=== PATIENT | female | born 1960 | race Caucasian/White ===

== ENCOUNTER → 2016-09-03 | Outpatient (CLI) | payer BC ==
[2016-09-03 08:41] LABS: Appearance,Urine Clear (Clear); Bacteria,Urine Occasional /hpf; Bilirubin,Urine Negative (Negative); Glucose,Urine (UA) Negative (Negative); Ketones,Urine Negative (Negative); Leukocyte Esterase,Urine Moderate (Negative); Mucus,Urine Rare /hpf; Nitrite,Urine Positive (Negative); PH, Urine 5.5 (5.0-8.0); Particle Count 25193; Protein,Urine Negative (Negative); RBC,Urine <1 /hpf (0-5); Specific Gravity,Urine 1.007 (1.001-1.035); Squamous Epithelial Cell,Urine 3 /hpf (0-4); UA Billing (MACRO vs. MICRO) MICRO; Urobilinogen,Urine <2.0 mg/dL (<2.0); WBC,Urine 21 /hpf (0-5)
[2016-09-03 10:05] LABS: Anion Gap 11 mmol/L; Blood Urea Nitrogen 26 mg/dL (7-17); Calcium 9.7 mg/dL (8.4-10.2); Carbon Dioxide 24 mmol/L (22-30); Chloride 109 mmol/L (98-107); Glucose 98 mg/dL (74-99); Non-African American GFR(MDRD) 41 (>60 ml/min/1.73 sqM); Phosphorous 3.4 mg/dL (2.5-4.5); Potassium 4.4 mmol/L (3.5-5.1); Sodium 144 mmol/L (137-145); Uric Acid 5.3 mg/dL (3.7-7.4)
[2016-09-03 10:35] LABS: Hepatitis B Surface Ag Index 0.07
[2016-09-03 10:53] LABS: Hepatitis C Virus IgG Index 0.01
[2016-09-03 10:58] LABS: Hepatitis C Virus IgG Ab Negative (Negative)
[2016-09-03 11:06] LABS: Iron 73 ug/dL (37-170)
[2016-09-03 11:17] LABS: % Iron Saturation 29.2 % (20-50); Total Iron Binding Capacity 250 ug/dL (265-497)
[2016-09-03 17:11] LABS: ANA w/Reflex to Titer NEGATIVE (NEGATIVE)
[2016-09-04 05:52] LABS: Cardiolipin Ab IgG <9.0 GPL (<15); Cardiolipin Ab IgM 14.4 MPL (<12.5)
[2016-09-04 05:55] LABS: Complement Total (CH50) 150 CAE (54-144)
[2016-09-04 08:25] LABS: Free Kappa Lt Chain Qnt, Serum 2.44 mg/dL (0.33 - 1.94); Kappa/Lambda Light Chain Ratio 1.15 (0.26 - 1.65)
[2016-09-04 14:13] LABS: Scleroderma 70 Antibody 2 UNITS (<20)
[2016-09-04 14:32] LABS: C-ANCA <1:20 Titer (<1:20); P-ANCA <1:20 Titer (<1:20)
[2016-09-05 06:10] LABS: Aldolase 2.8 U/L (1.2-7.6)
== END | disposition home or self-care (01) ==
LOC: LABWHC1 07:37
PROVIDERS: ATTEND Internal Medicine Rheumatology
DX: N18.3 Chronic kidney disease, stage 3 (moderate) (principal); D64.9 Anemia, unspecified; E79.0 Hyperuricemia without signs of inflammatory arthritis and tophaceous disease; E21.3 Hyperparathyroidism, unspecified; R35.0 Frequency of micturition; R76.8 Other specified abnormal immunological findings in serum
CPT/HCPCS: 36415; 80048; 81001; 82085; 82306; 82728; 83516; 83540; 83550; 83883; 83970; 84100; 84165; 84550; 85613; 85730; 86038; 86147; 86160; 86162; 86225; 86235; 86255; 86334; 86803; 87340

== ENCOUNTER → 2016-09-17 | Outpatient (CLI) | payer BC ==
--- NOTE | 2016-09-17 07:33 | US ---
EXAMINATION TYPE: US kidneys/renal and bladder DATE OF EXAM: 09/17/2016 6:54 AM COMPARISON: NONE CLINICAL HISTORY: N18.3 Chronic kidney disease, stage 3 (moderate). creatinine levels stable EXAM MEASUREMENTS: Right Kidney: 8.3 x 4.4 x 3.8 cm Left Kidney: 8.1 x 3.1 x 3.2 cm cm Post Void Residual Volume: 23.4 mL Findings: Right Kidney: small, no hydro seen Left Kidney: small, cyst lower pole 0.5 x 0.6 x 0.4 cm, no hydro seen Bladder: wnl Bilateral Jets seen: yes Normal Post Void Residual: yes There is no evidence for hydronephrosis at this point in time. No nephrolithiasis is seen. No jose raul s are identified. The urinary bladder is anechoic. Bilateral ureteral jets are seen. IMPRESSION: Atrophic changes with medical renal disease. Small cyst lower pole left kidney.
== END | disposition home or self-care (01) ==
LOC: RADUSWWP 06:53
PROVIDERS: ATTEND Internal Medicine Nephrology
DX: N28.1 Cyst of kidney, acquired (principal); N26.1 Atrophy of kidney (terminal); N18.3 Chronic kidney disease, stage 3 (moderate)
CPT/HCPCS: 76770

== ENCOUNTER → 2016-09-18 | Outpatient (CLI) | payer BC ==
--- NOTE | 2016-09-18 08:16 | MR ---
EXAMINATION TYPE: MR knee LT wo con DATE OF EXAM: 09/18/2016 7:32 AM COMPARISON: NONE HISTORY: Left knee pain. TECHNIQUE: Multiplanar, multisequence imaging of the knee is performed without IV contrast. FINDINGS: MEDIAL MENISCUS: Anterior horn of the medial meniscus appears intact. Posterior horn medial meniscus has some subtle increased signal within its substance posteriorly can be compatible some degenerative change. Internal derangement could be considered. LATERAL MENISCUS: Anterior horn of the lateral meniscus is essentially absent with very little residu al remaining. Posterior horn lateral meniscus appears intact. CRUCIATE LIGAMENTS: The anterior and posterior cruciate ligaments are intact and unremarkable. COLLATERAL LIGAMENTS: The medial and lateral collateral ligaments appear intact. There is some mild i ncreased signal adjacent to the medial collateral ligament which could suggest a mild strain. EXTENSOR MECHANISM: Visualized quadriceps and patellar tendons are intact. EFFUSION: There is a moderate joint effusion present. Subcutaneous edema is also present anteriorly. No popliteal cyst is evident. POPLITEAL CYST: No popliteal/pean cyst. TRICOMPARTMENT SPACES: There is diffuse thinning of the articular cartilage. There is narrowing of th e medial compartment joint space. More moderate narrowing of the lateral compartment joint space is p resent. There is thinning of the posterior patellar articular cartilage with some narrowing of the pa tellofemoral joint space. BONE MARROW SIGNAL: There is slight increase signal within the lateral tibial plateau compatible with contusion. Some focal increased uptake within the medial femoral condyle could suggest prior underly ing medullary infarct or older contusion. This extends towards the articular surface. Anteriorly some close involvement with the articular surface may be present. A small component of osteochondritis co uld be considered at this location. This could be posttraumatic in nature. OTHER: No additional significant abnormality is appreciated. IMPRESSION: 1. Strain of the medial collateral ligament. 2. Moderate joint effusion. 3. Osteoarthritic degenerative change. 4. Contusion of the lateral tibial plateau. 5. 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 This extends towards the articular s urface a small component of osteochondritis dissecans more anteriorly could be considered. Posttrauma tic changes of this articular surface could be considered within the differential. 6. Loss of the anterior horn lateral meniscus. 7. Mild internal derangement or degenerative change of the posterior horn medial meniscus.
== END | disposition home or self-care (01) ==
LOC: RADMRIMAIN 06:42
PROVIDERS: ATTEND Orthopaedic Surgery
DX: S86.812A Strain of other muscle(s) and tendon(s) at lower leg level, left leg, initial encounter (principal); M17.12 Unilateral primary osteoarthritis, left knee

== ENCOUNTER → 2016-09-25 | Outpatient (CLI) | payer BC ==
[2016-09-25 08:18] LABS: EKG EKG PERFORMED
[2016-09-25 09:00] LABS: Basophils % (A) 0 %; CH 30.2; CHCM 32.4; Eosinophils # (A) 0.1 k/uL (0-0.7); Eosinophils % (A) 3 %; HCT 41.7 % (34.0-46.0); HDW 2.46; HGB 13.3 gm/dL (11.4-16.0); Luc # (Auto) 0.13; Luc % (Auto) 3; Lymphocytes # (A) 1.4 k/uL (1.0-4.8); Lymphocytes % (A) 29 %; MCV 93.7 fL (80.0-100.0); Mean Platelet Volume 6.5; Monocytes # (A) 0.3 k/uL (0-1.0); Monocytes % (A) 7 %; Neutrophils % (A) 59 %; RBC 4.45 m/uL (3.80-5.40); RDW 13.2 % (11.5-15.5); WBC (Perox) 5.39
[2016-09-25 09:10] LABS: Anion Gap 12 mmol/L; Carbon Dioxide 20 mmol/L (22-30); Chloride 113 mmol/L (98-107); Sodium 145 mmol/L (137-145)
[2016-09-25 09:19] LABS: Potassium 4.7 mmol/L (3.5-5.1)
== END | disposition home or self-care (01) ==
LOC: LABPAT 08:05
PROVIDERS: ATTEND Orthopaedic Surgery
DX: Z01.812 Encounter for preprocedural laboratory examination (principal); Z01.810 Encounter for preprocedural cardiovascular examination
CPT/HCPCS: 80051; 85025; 93005

== ENCOUNTER 2016-09-28 10:58 | Day surgery (SDC) | payer BC ==
[2016-09-25 15:23] VITALS: BMI 37.8
--- NOTE | 2016-09-27 13:59 | HP ---
DATE OF ADMISSION: 09/28/2016 Yeny Lott is a 55-year-old patient seen with progressive left knee pain. After having treatment options discussed, she elected to proceed with left knee arthroscopy. Consent was obtained. Her past medical history is hypertension, fibromyalgia, gout. PAST SURGICAL HISTORY: Appendectomy, hip replacement, cardiac catheterization with stent insertion. DAILY MEDICATIONS: 1. Aleve. 2. Allopurinol. 3. Lopressor. 4. Lyrica. 5. Plaquenil. 6. Prilosec. 7. Simvastatin. ALLERGIES: None reported. SOCIAL HISTORY: Patient denies current tobacco use. Physical evaluation of the left knee: Range of motion is -2/3 to 110 degrees. There is a mild effusion present. There is tenderness along the lateral joint line with a positive lateral Christina's. Ligaments are stable. Hip rotation is without pain. Distal neurovascular exam is intact. Left knee radiographs revealed moderate osteoarthritis. A left knee MRI revealed lateral meniscal tear, osteoarthritis, and joint effusion. IMPRESSION: Internal derangement of the left knee with lateral meniscal tear. PLAN: Left knee arthroscopy with partial meniscectomy and debridement.
[~2016-09-28 10:58] MED LIST: DEXAMETHASONE SOD PHOSPHATE 10 MG/ML 1 ML VIAL IV ONE; LACTATED RINGERS 1,000 ML IV SCH; LIDOCAINE 1% 20 ML VIAL (10MG/ML) FOR IV START INTRADERMA PRN; MIDAZOLAM 2 MG/2 ML VIAL IV PRN; ONDANSETRON 4 MG/2 ML VIAL IVP ONE; SCOPOLAMINE 1.5MG/72HR PATCH TRANSDERM ONE; ceFAZolin 2 GM in SODIUM CHLORIDE 0.9% 100 ML IVPB ONE; fentaNYL (PF) 50 MCG/ML 20 ML VIAL IVP PRN
[2016-09-28] MEDS ORDERED: SUCCINYLCHOLINE CHLORIDE 100 MG/5 ML SYR IV ONE (14:25)
[2016-09-28] MEDS ORDERED: LIDOCAINE 1% INJ 10MG/ML (20 ML MDV) ONE (14:25)
[2016-09-28] MEDS ORDERED: PROPOFOL 10 MG/ML 20 ML VIAL IV ONE (14:25)
[2016-09-28] MEDS ORDERED: MIDAZOLAM 2 MG/2 ML VIAL ONE (14:25)
[2016-09-28] MEDS ORDERED: fentaNYL (PF) 50 MCG/ML 2 ML AMP ONE (14:25)
[2016-09-28] MEDS ORDERED: BUPIVACAIN-EPI 0.25%-1:200,000 30 ML VIAL INTRAARTIC ONE ×2 (14:45→15:03)
--- NOTE | 2016-09-28 15:23 | P.OP ---
Date of Procedure: 09/28/16 Preoperative Diagnosis: Internal derangement left knee Postoperative Diagnosis: 1. Tear lateral meniscus left knee 2. Grade 3 chondromalacia medial femoral condyle left knee 3. Grade 3 chondromalacia lateral femoral condyle left knee 4. Grade 2/3 chondromalacia patella left knee 5. Reactive synovitis medial, lateral and suprapatellar compartments left knee Procedure(s) Performed: 1. Arthroscopic partial lateral meniscectomy left knee 2. Arthroscopic chondroplasty medial femoral condyle left knee 3. Arthroscopic chondroplasty lateral femoral condyle left knee 4. Arthroscopic chondroplasty patella left knee 5. Arthroscopic partial synovectomy medial, lateral and suprapatellar compartments left knee Anesthesia: GETA Surgeon: Archie Barry Estimated Blood Loss (ml): 10 Pathology: none sent Condition: stable Disposition: PACU Indications for Procedure: 56-year-old patient seen with progressive left knee pain. After having treatment options discussed, she elected to proceed with left knee arthroscopy. Operative Findings: See description of procedure Description of Procedure: Patient was taken to the operative suite. Patient underwent a general anesthetic by the department of anesthesia. Patient was given preoperative antibiotics. The left lower extremity was placed in a well-padded arthroscopic leg perry. The left leg was prepped and draped in the normal sterile orthopedic fashion. A lateral parapatellar and suprapatellar incision was made. Trochars were inserted. Arthroscopy was initiated. Suprapatellar pouch revealed diffuse thick reactive synovitis. The patellofemoral joint appeared to articulate congruently. There was grade 2/3 chondromalacia of the patella. The scope was guided into the medial gutter. No loose bodies or plica were identified. The scope was then guided into the medial compartment. A medial parapatellar incision was made. Trocar inserted followed by probe. The medial meniscus had some mild superficial fraying but no tears. There were grade 3 chondromalacia changes of the medial femoral condyle with some large osteochondral tears present. There was reactive synovitis anteriorly. I performed a chondroplasty of the medial femoral condyle down to stable tissue followed by partial synovectomy. The probe was reintroduced and noted good stability about the residual osteochondral surface. Scope and probe were then guided into the intercondylar notch. Cruciates were identified, probed and found to be stable. The scope and probe were then guided into lateral compartment. There was a complex tear involving the anterior horn and midbody of the lateral meniscus. There were grade 3 chondral moist changes of the lateral femoral condyle with some osteochondral tears. There was reactive synovitis anteriorly. A partial lateral meniscectomy performed on a stable tissue. I performed a chondroplasty of the lateral femoral condyle and partial synovectomy. The residual osteochondral surface and meniscus were probed and found to be stable. The scope was in guided back into the suprapatellar compartment. A motorized shaver was introduced into the suprapatellar compartment. I debrided out some piecemeal fragments of meniscus I encountered. I performed a chondroplasty of the patella. I performed a partial synovectomy. Shaver was removed. I took one more look on the entire knee, no residual debris. Instruments were now removed from the joint. The joint was infiltrated with .25% Marcaine. Steri-Strips were applied to the portal sites. Sterile dressings were applied. The patient was placed into a FINN hose. No tourniquet was utilized. The patient was awakened, transferred to a bed and taken to recovery stable satisfactory condition.
[2016-09-28] MEDS: HYDROmorphone 1 MG/ML 1 ML SYRINGE IVP PRN ×2 (15:33→15:43)
[2016-09-28 15:42] VITALS: RESP 16
[2016-09-28 15:52] VITALS: TEMP 97.9
[2016-09-28] MEDS ORDERED: LACTATED RINGERS 1,000 ML IV ONE (16:18)
[2016-09-28] MEDS ORDERED: HYDROcodone/APAP 7.5-325MG 1 EACH TAB PO ONE (16:47)
[2016-09-28] MEDS ORDERED: ONDANSETRON 4 MG/2 ML VIAL IVP ONE (17:36)
[2016-09-28 17:39] VITALS: BP 142/78
[2016-09-28 17:46] VITALS: PULSE 70
== END 2016-09-28 18:03 | disposition home or self-care (01) ==
LOC: OR 10:58
PROVIDERS: ATTEND Orthopaedic Surgery
DX: S83.282A Other tear of lateral meniscus, current injury, left knee, initial encounter (principal); M94.262 Chondromalacia, left knee; M22.42 Chondromalacia patellae, left knee; M65.862 Other synovitis and tenosynovitis, left lower leg; M23.92 Unspecified internal derangement of left knee; M25.462 Effusion, left knee; M17.12 Unilateral primary osteoarthritis, left knee; I10 Essential (primary) hypertension; M79.7 Fibromyalgia; M10.9 Gout, unspecified; E78.5 Hyperlipidemia, unspecified; M32.9 Systemic lupus erythematosus, unspecified; K21.9 Gastro-esophageal reflux disease without esophagitis; Z95.5 Presence of coronary angioplasty implant and graft; I25.2 Old myocardial infarction; Z79.1 Long term (current) use of non-steroidal anti-inflammatories (NSAID); Z79.82 Long term (current) use of aspirin; Z79.899 Other long term (current) drug therapy; Z88.8 Allergy status to other drugs, medicaments and biological substances; X58.XXXA Exposure to other specified factors, initial encounter
CPT/HCPCS: 29881; J2250; J1100; J0690; J2405; J2001; J3010; J1170; J0330; J2704

== ENCOUNTER → 2016-12-29 | Outpatient (CLI) | payer OTHER ==
[2016-12-29 13:37] LABS: Basophils % (A) 0 %; CH 30.8; CHCM 32.7; Eosinophils # (A) 0.2 k/uL (0-0.7); Eosinophils % (A) 3 %; HCT 39.3 % (34.0-46.0); HDW 2.46; HGB 12.7 gm/dL (11.4-16.0); Luc # (Auto) 0.19; Luc % (Auto) 3; Lymphocytes # (A) 2.5 k/uL (1.0-4.8); Lymphocytes % (A) 38 %; MCH 30.5 pg (25.0-35.0); MCHC 32.2 g/dL (31.0-37.0); MCV 94.7 fL (80.0-100.0); Mean Platelet Volume 6.7; Monocytes # (A) 0.4 k/uL (0-1.0); Monocytes % (A) 7 %; Neutrophils # (A) 3.2 k/uL (1.3-7.7); Neutrophils % (A) 50 %; RBC 4.15 m/uL (3.80-5.40); WBC 6.5 k/uL (3.8-10.6)
[2016-12-29 13:48] LABS: Calcium 9.4 mg/dL (8.4-10.2); Magnesium 2.1 mg/dL (1.6-2.3); Potassium 4.6 mmol/L (3.5-5.1)
[2016-12-29 13:56] LABS: % Iron Saturation 28.6 % (20-50)
== END | disposition home or self-care (01) ==
LOC: LABWHC1 12:51
PROVIDERS: ATTEND Nurse Practitioner Family
DX: N18.3 Chronic kidney disease, stage 3 (moderate) (principal); E79.0 Hyperuricemia without signs of inflammatory arthritis and tophaceous disease; E21.3 Hyperparathyroidism, unspecified; D64.9 Anemia, unspecified; E55.9 Vitamin D deficiency, unspecified; M10.9 Gout, unspecified; E83.39 Other disorders of phosphorus metabolism
CPT/HCPCS: 36415; 80048; 82306; 82728; 83540; 83550; 83735; 83970; 84100; 84550; 85025

== ENCOUNTER → 2017-09-13 | Outpatient (CLI) | payer BC ==
[2017-09-13 07:54] LABS: ALT 41 U/L (9-52); AST 27 U/L (14-36); Cholesterol 154 mg/dL (<200); HDL Cholesterol 61 mg/dL (40-60); LDL Cholesterol,Calculated 76 mg/dL (0-99); Triglycerides 83 mg/dL (<150)
== END | disposition home or self-care (01) ==
LOC: LABWHC1 07:02
PROVIDERS: ATTEND Internal Medicine Cardiovascular Disease
DX: E78.2 Mixed hyperlipidemia (principal)
CPT/HCPCS: 36415; 80061; 84450; 84460

== ENCOUNTER → 2018-03-07 | Outpatient (CLI) | payer BC ==
[2018-03-07 07:44] LABS: Basophils % (A) 0 %; Eosinophils # (A) 0.2 k/uL (0-0.7); Eosinophils % (A) 3 %; HCT 39.3 % (34.0-46.0); Lymphocytes % (A) 48 %; MCH 30.1 pg (25.0-35.0); MCHC 33.1 g/dL (31.0-37.0); Monocytes # (A) 0.4 k/uL (0-1.0); Monocytes % (A) 7 %; Neutrophils # (A) 2.5 k/uL (1.3-7.7); Neutrophils % (A) 40 %; Platelet Count 224 k/uL (150-450); RBC 4.32 m/uL (3.80-5.40); RDW 13.2 % (11.5-15.5); WBC 6.3 k/uL (3.8-10.6)
[2018-03-07 07:48] LABS: Appearance,Urine Clear (Clear); Bilirubin,Urine Negative (Negative); Blood,Urine Negative (Negative); Color,Urine Light Yellow; Glucose,Urine (UA) Negative (Negative); Ketones,Urine Negative (Negative); Leukocyte Esterase,Urine Negative (Negative); Nitrite,Urine Negative (Negative); PH, Urine 5.5 (5.0-8.0); Protein,Urine Negative (Negative); Specific Gravity,Urine 1.008 (1.001-1.035); Urobilinogen,Urine <2.0 mg/dL (<2.0)
[2018-03-07 08:14] LABS: Calcium 9.3 mg/dL (8.4-10.2); Magnesium 2.2 mg/dL (1.6-2.3); Phosphorus 3.5 mg/dL (2.5-4.5); Potassium 4.7 mmol/L (3.5-5.1); Uric Acid 5.2 mg/dL (3.7-7.4)
[2018-03-07 11:12] LABS: Iron Saturation 20.93 (12.00-45.00)
[2018-03-07 11:23] LABS: Vitamin D 25 Hydroxy 40.2 ng/mL (30.0-100.0)
[2018-03-07 11:30] LABS: Parathyroid Hormone Intact 107.1 pg/mL (14.0-72.0)
== END | disposition home or self-care (01) ==
LOC: LABWHC1 07:09
PROVIDERS: ATTEND Nurse Practitioner Family
DX: E21.3 Hyperparathyroidism, unspecified (principal); E79.0 Hyperuricemia without signs of inflammatory arthritis and tophaceous disease; N18.3 Chronic kidney disease, stage 3 (moderate); D63.1 Anemia in chronic kidney disease; N39.0 Urinary tract infection, site not specified
CPT/HCPCS: 36415; 80048; 81003; 82306; 82728; 83540; 83550; 83735; 83970; 84100; 84550; 85025

== ENCOUNTER → 2018-04-18 | Outpatient (CLI) | payer BC ==
[2018-04-18 12:28] LABS: HCT 43.6 % (34.0-46.0); HGB 13.7 gm/dL (11.4-16.0); MCH 29.4 pg (25.0-35.0); MCHC 31.3 g/dL (31.0-37.0); MCV 93.7 fL (80.0-100.0); Mean Platelet Volume 6.6; Platelet Count 221 k/uL (150-450); RBC 4.65 m/uL (3.80-5.40); RDW 13.6 % (11.5-15.5); WBC 6.7 k/uL (3.8-10.6)
== END | disposition home or self-care (01) ==
LOC: LABPAT 11:44
PROVIDERS: ATTEND Internal Medicine Clinical Cardiac Electrophysiology
DX: Z01.812 Encounter for preprocedural laboratory examination (principal); I21.09 ST elevation (STEMI) myocardial infarction involving other coronary artery of anterior wall; I44.30 Unspecified atrioventricular block; Z95.5 Presence of coronary angioplasty implant and graft
CPT/HCPCS: 36415; 80051; 82565; 82947; 84520; 85027

== ENCOUNTER 2018-04-21 10:08 | Day surgery (SDC) | payer BC ==
[2018-04-18 14:45] VITALS: BMI 38.6
[~2018-04-21 10:08] MED LIST changes: -DEXAMETHASONE SOD PHOSPHATE 10 MG/ML 1 ML VIAL IV ONE; -LACTATED RINGERS 1,000 ML IV SCH; -LIDOCAINE 1% 20 ML VIAL (10MG/ML) FOR IV START INTRADERMA PRN; -MIDAZOLAM 2 MG/2 ML VIAL IV PRN; -ONDANSETRON 4 MG/2 ML VIAL IVP ONE; -SCOPOLAMINE 1.5MG/72HR PATCH TRANSDERM ONE; +ceFAZolin 1,000 MG in SODIUM CHLORIDE 0.9% IRRIGATIO 250 ML IRRIGATION ONE; -ceFAZolin 2 GM in SODIUM CHLORIDE 0.9% 100 ML IVPB ONE; -fentaNYL (PF) 50 MCG/ML 20 ML VIAL IVP PRN
[2018-04-21] MEDS: SODIUM CHLORIDE 0.9% 1,000 ML IV SCH (10:37)
[2018-04-21] MEDS ORDERED: ceFAZolin IN SWFI 2 GM/20 ML SYRINGE IVP STA (11:17)
[2018-04-21] MEDS ORDERED: ceFAZolin 1,000 MG in DEXTROSE/WATER 1 50ML.BAG IVPB STA (11:21)
[2018-04-21] MEDS ORDERED: HYDROmorphone (PF) 1 MG/ML ONE (11:31)
[2018-04-21] MEDS ORDERED: PROPOFOL 10 MG/ML 20 ML VIAL IV ONE (11:31)
[2018-04-21] MEDS ORDERED: MIDAZOLAM 2 MG/2 ML VIAL ONE (11:31)
[2018-04-21] MEDS ORDERED: diphenhydrAMINE 50 MG/ML 1 ML VIAL ONE (11:31)
[2018-04-21] MEDS ORDERED: fentaNYL (PF) 50 MCG/ML 2 ML AMP ONE (11:31)
[2018-04-21] MEDS ORDERED: LIDOCAINE 1% INJ 10MG/ML (20 ML MDV) ONE ×2 (11:31→12:32)
[2018-04-21] MEDS ORDERED: IOPAMIDOL-250 50ML BTL IV ONE (12:01)
[2018-04-21] MEDS: ceFAZolin IN SWFI 2 GM/20 ML SYRINGE IVP ONE ×2 (12:28→12:29)
[2018-04-21] MEDS ORDERED: LIDOCAINE 1% INJ 10MG/ML (20 ML MDV) SQ ONE ×2 (12:33→14:51)
[2018-04-21] MEDS ORDERED: ACETAMINOPHEN TAB 325 MG TAB PO PRN (15:20)
[2018-04-21] MEDS ORDERED: ACETAMINOPHEN IV (For NPO) 1,000 MG in EMPTY BAG 1 BAG IVPB ONE (15:20)
--- NOTE | 2018-04-21 16:49 | CE ---
CARDIAC ELECTROPHYSIOLOGY REPORT This is a 57-year-old female who has very frequent dizzy spells and had syncopal spells and has documented intermittent complete heart block with severe bradycardia. No incriminating drugs. The patient was brought for dual-chamber pacemaker with the LV lead placement since it is anticipated that she will pace the right ventricle greater than 40% at times in the future. Patient was brought to the EP lab in a fasting state. Written informed consent was obtained prior to the procedure. The left shoulder area was prepped and draped as per protocol. 1% lidocaine was used for local anesthesia. A 4 cm incision was made parallel to the deltopectoral groove, about 1.5 cm medial to it. The incision was carried down to the level of the pectoralis muscle. A subfascial pocket was made. Hemostasis was assured. The left axillary vein was accessed at 3 separate points under fluoroscopy and via appropriately-sized introducer sheaths and 3 leads were positioned the right heart. The atrial lead was a 52 cm passive pacemaker lead, [employer] Isoflex [employer]um 1944, serial number [id number]. The RV lead was a [employer] model #7122, 60 cm in length and serial number [id number]. The LV lead was a [employer] Quartet 1458Q, 75 cm in length and serial number [id number]. The P waves were 3.1 mV, pacing threshold 0.75 V at 0.5 milliseconds, pacing impedance of 540 ohms. 10 V test negative. The R-waves were 3.7 mV. Pacing threshold 1 V at 0.5 milliseconds, and the pacing impedance of 660 ohms. LV pacing threshold 0.75 V at 0.5 milliseconds. Pacing impedance 450 ohms. The leads were secured to the underlying pectoralis fascia using nonabsorbable sutures. Pocket was irrigated with antibiotic solution. Leads were connected to the generator ([employer] biventricular pacemaker Quadra SYRIAC [id number], serial #[id number]. The device was then programmed DDD at 60-120 ppm with short AV delay with LV RV offset of 20 milliseconds. The patient tolerated the procedure well without any acute complications. RESULT: Successful dual chamber pacemaker implantation for management of intermittent complete heart block and anticipated RV pacing percentage of greater than 40% in the future. The patient has a history of a septal infarct with a healed VSD on echo in the mid septum. The RV ICD lead was positioned in the RV apex. His ejection fraction is mildly reduced. PIPPA / CARLOSN: [id number] /
[2018-04-21] MEDS: ceFAZolin IN SWFI 2 GM/20 ML SYRINGE IVP SCH ×2 (18:25→23:34)
[2018-04-21] MEDS: LACTATED RINGERS 1,000 ML IV SCH (18:41)
[2018-04-21] MEDS: PREGABALIN 75 MG CAP PO SCH (20:19)
[2018-04-21] MEDS ORDERED: ATORVASTATIN 40 MG TAB PO SCH (21:00)
[2018-04-21] MEDS: HYDROcodone/APAP 5-325MG 1 EACH TAB PO PRN (23:40)
[2018-04-22] MEDS ORDERED: ONDANSETRON 4 MG/2 ML VIAL IVP STA (00:04)
[2018-04-22] MEDS: SODIUM CHLORIDE 0.9% 1,000 ML IV SCH (01:49)
[2018-04-22] MEDS: ceFAZolin IN SWFI 2 GM/20 ML SYRINGE IVP SCH ×2 (06:12→11:57)
[2018-04-22] MEDS: HYDROcodone/APAP 5-325MG 1 EACH TAB PO PRN ×2 (06:12→10:04)
[2018-04-22] MEDS: LACTATED RINGERS 1,000 ML IV SCH (06:23)
[2018-04-22] MEDS ORDERED: ONDANSETRON 4 MG/2 ML VIAL IVP PRN (07:46)
--- NOTE | 2018-04-22 08:00 | P.DS ---
Providers Attending physician: Jaswinder Berrios Primary care physician: [facility] Course: Patient status post biventricular pacemaker for complete heart block, symptomatic without any reversible causes Patient is resting comfortably in bed no respiratory distress the a 6 site is healing well. 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 RV lead is in the apex Plan Discharge home after completion of IV antibiotics chest x-ray and device interrogation Follow-up the device clinic in 5 days and follow with Dr. Cagle as previously scheduled Plan - Discharge Summary Discharge Rx Participant: Yes New Discharge Prescriptions: Continue RX: Allopurinol [Zyloprim] 100 mg PO DAILY RX: Simvastatin [Zocor] 80 mg PO HS RX: Pregabalin [Lyrica] 75 mg PO BID RX: Tolterodine Tartrate [Detrol LA] 4 mg PO DAILY RX: Multivitamin [Men's Multi-Vitamin] 1 tab PO DAILY RX: Omeprazole [PriLOSEC] 20 mg PO AC-BID PRN PRN Reason: Heartburn RX: Aspirin 325 mg PO DAILY Norvasc(Dose Unknown) 1 tab PO DAILY RX: Calcium Citrate/Vitamin D3 [Calcitrate + Vit D Caplet] 1 each PO SCHUSTER Vitamin D(Dose Unknown) 1 tab PO DAILY Eye Vitamin 1 tab PO DAILY Discharge Medication List RX: Allopurinol [Zyloprim] 100 mg PO DAILY 01/13/14 [History] RX: Multivitamin [Men's Multi-Vitamin] 1 tab PO DAILY 01/13/14 [History] RX: Pregabalin [Lyrica] 75 mg PO BID 01/13/14 [History] RX: Simvastatin [Zocor] 80 mg PO HS 01/13/14 [History] RX: Tolterodine Tartrate [Detrol LA] 4 mg PO DAILY 01/13/14 [History] RX: Omeprazole [PriLOSEC] 20 mg PO AC-BID PRN 01/14/14 [History] RX: Aspirin 325 mg PO DAILY 09/25/16 [History] Eye Vitamin 1 tab PO DAILY 04/18/18 [History] Norvasc(Dose Unknown) 1 tab PO DAILY 04/18/18 [History] RX: Calcium Citrate/Vitamin D3 [Calcitrate + Vit D Caplet] 1 each PO SCHUSTER [History] Vitamin D(Dose Unknown) 1 tab PO DAILY 04/18/18 [History] Follow up Appointment(s)/Referral(s): Zachariah Cagle MD [STAFF PHYSICIAN] - 1 Week (Device clinic follow-up in 5 days Follow-up with Dr. Waldron as previously scheduled) Activity/Diet/Wound Care/Special Instructions: PATIENT EDUCATION MATERIAL Instructions following a heart rhythm device implant. 1. Keep dressing DRY for 5 DAYS. You may cover the area with Saran or Cling Wrap, prior to a shower. 2. The dressing will be removed in the Device Clinic at [facility]. Absorbable sutures were used to close the wound. 3. Avoid raising the left arm above the shoulder level. 4 week restriction 4. Avoid arm movements, like backscratching, rubbing the head, or pulling on a cord. 4 weeks restriction 5. Gentle range of motion movements of the shoulder, closest to the incision should be performed to avoid a frozen shoulder. (Pendulum exercises of the shoulder) 6. The opposite arm may be used freely. 7. Avoid driving for 7 days. 8. Avoid activities such as golfing, swimming, weed whacking, lifting more than 10 pounds weight, bowling, gymnastics and weight training/lifting. (6 weeks restriction) 9. Activities such as wood chopping with an axe, pull-ups in the gymnasium, power lifting, arc-welding, being close to home induction cooktops will always be a problem. 10. Arm sling is only a reminder not to raise the arm above the head. You do not need to keep the arm completely immobilized. Your free to move the arm and use it and for normal activities. In case of any problems, please call [facility], Randy Reyes, @ [phone], Attention: Device Clinic Device clinic follow-up in 5 days Follow-up with primary chair pad maker in 2-3 months Patient goes back on her usual medications including amlodipine at the usual dose without any changes Follow-up with Dr. Waldron is producing scheduled 400 the device clinic in 5 days Discharge Disposition: HOME SELF-CARE
[2018-04-22 08:33] VITALS: RESP 18
[2018-04-22] MEDS: PREGABALIN 75 MG CAP PO SCH (08:58)
[2018-04-22] MEDS ORDERED: ALLOPURINOL 100 MG TAB PO SCH (09:00)
[2018-04-22] MEDS ORDERED: OXYBUTYNIN 10 MG TAB.ER.24 PO SCH (09:00)
[2018-04-22] MEDS ORDERED: ASPIRIN 325 MG TAB PO SCH (09:00)
--- NOTE | 2018-04-22 11:14 | XR ---
EXAMINATION TYPE: XR chest 2V DATE OF EXAM: 04/22/2018 COMPARISON: NONE TECHNIQUE: PA and lateral views submitted. HISTORY: Pacemaker lead check FINDINGS: The lungs are clear and there is no pneumothorax, pleural effusion, or focal pneumonia. Multi lead pacemaker noted. Appears to be a lead overlying the right atrium, right ventricle, and left ventricle . Hypertrophic and degenerative change of the spine noted. No overt failure. IMPRESSION: 1. Pacemaker as discussed above.
[2018-04-22 12:13] VITALS: BP 121/68; PULSE 60; TEMP 97.9
== END 2018-04-22 13:17 | disposition home or self-care (01) ==
LOC: CATHEP 10:08 → 3OBS 15:01 → CATHEP 04-22 13:17
PROVIDERS: ATTEND Internal Medicine Clinical Cardiac Electrophysiology
DX: I44.2 Atrioventricular block, complete (principal); R00.1 Bradycardia, unspecified; I25.10 Atherosclerotic heart disease of native coronary artery without angina pectoris; I25.2 Old myocardial infarction; M32.9 Systemic lupus erythematosus, unspecified; I13.0 Hypertensive heart and chronic kidney disease with heart failure and stage 1 through stage 4 chronic kidney disease, or unspecified chronic kidney disease; I50.9 Heart failure, unspecified; N18.9 Chronic kidney disease, unspecified; E78.5 Hyperlipidemia, unspecified; I77.9 Disorder of arteries and arterioles, unspecified; M25.511 Pain in right shoulder; G89.29 Other chronic pain; K21.9 Gastro-esophageal reflux disease without esophagitis; Z95.5 Presence of coronary angioplasty implant and graft; F17.210 Nicotine dependence, cigarettes, uncomplicated; Z79.82 Long term (current) use of aspirin; Z79.899 Other long term (current) drug therapy; Z96.651 Presence of right artificial knee joint; Z88.8 Allergy status to other drugs, medicaments and biological substances
CPT/HCPCS: 33225; 33208; 71046; C1769 ×4; C1892 ×2; C1730; C1777; C1900; C1898; C2621; J2250; J1200; J2405; J0690 ×4; J2001; J3010; J1170; J0131; J2704; Q9966

== ENCOUNTER → 2018-10-11 | Outpatient (CLI) | payer BC ==
[2018-10-11 09:31] LABS: Appearance,Urine Cloudy (Clear); Bacteria,Urine Rare /hpf; Bilirubin,Urine Negative (Negative); Blood,Urine Negative (Negative); Color,Urine Yellow; Glucose,Urine (UA) Negative (Negative); Hyaline Casts,Urine 5 /lpf (0-2); Ketones,Urine Negative (Negative); Leukocyte Esterase,Urine Trace (Negative); Mucus,Urine Rare /hpf; Nitrite,Urine Negative (Negative); PH, Urine 5.5 (5.0-8.0); Protein,Urine Trace (Negative); Squamous Epithelial Cell,Urine 11 /hpf (0-4); Urobilinogen,Urine <2.0 mg/dL (<2.0); WBC,Urine 2 /hpf (0-5)
[2018-10-11 09:32] LABS: Basophils % (A) 1 %; Eosinophils # (A) 0.1 k/uL (0-0.7); Eosinophils % (A) 3 %; HCT 41.5 % (34.0-46.0); HGB 13.2 gm/dL (11.4-16.0); Lymphocytes # (A) 1.4 k/uL (1.0-4.8); Lymphocytes % (A) 29 %; MCH 29.8 pg (25.0-35.0); MCHC 31.8 g/dL (31.0-37.0); MCV 93.6 fL (80.0-100.0); Mean Platelet Volume 7.4; Monocytes # (A) 0.3 k/uL (0-1.0); Monocytes % (A) 7 %; Neutrophils # (A) 2.9 k/uL (1.3-7.7); Neutrophils % (A) 60 %; Platelet Count 195 k/uL (150-450); RBC 4.44 m/uL (3.80-5.40); RDW 13.7 % (11.5-15.5); WBC 4.9 k/uL (3.8-10.6)
[2018-10-11 17:20] LABS: Iron Saturation 41.7 (12.00-45.00)
[2018-10-11 17:27] LABS: Vitamin D 25 Hydroxy 41.2 ng/mL (30.0-100.0)
[2018-10-11 17:42] LABS: Anion Gap 3.4 mmol/L (4.00-12.00); Calcium 9.3 mg/dL (8.7-10.3); Carbon Dioxide 27.6 mmol/L (21.6-31.8); LDL Cholesterol,Calculated 66.4 mg/dL (0.0-131.0); Magnesium 1.9 mg/dL (1.5-2.4); Potassium 4.5 mmol/L (3.5-5.5); Uric Acid 4.9 mg/dL (2.9-7.7); VLDL Calculation 23.6 mg/dL (5.00-40.00)
[2018-10-11 18:15] LABS: Parathyroid Hormone Intact 76.5 pg/mL (14.0-72.0)
== END ==
LOC: LABWHC1 08:29
PROVIDERS: ATTEND Nurse Practitioner Family
DX: N18.3 Chronic kidney disease, stage 3 (moderate) (principal); E21.3 Hyperparathyroidism, unspecified; M10.9 Gout, unspecified; N25.81 Secondary hyperparathyroidism of renal origin; D55.9 Anemia due to enzyme disorder, unspecified; E78.2 Mixed hyperlipidemia; I48.0 Paroxysmal atrial fibrillation; E03.9 Hypothyroidism, unspecified; N39.0 Urinary tract infection, site not specified
CPT/HCPCS: 36415; 80048; 80061; 81001; 82306; 82728; 83540; 83550; 83735; 83970; 84100; 84443; 84460; 84550; 85025

== ENCOUNTER → 2020-02-01 | Outpatient (CLI) | payer OTHER ==
--- NOTE | 2020-02-01 12:20 | MM ---
Reason for exam: clinical finding. Last mammogram was performed 3 years and 8 months ago. History: Patient is postmenopausal and has history of other cancer at age 49. Chemotherapy. Took estrogen for 4 years. Took progesterone for 4 years. Physical Findings: Nurse did not find any significant physical abnormalities on exam. MG Diagnostic Mammo w CAD ASUNCION Bilateral CC and MLO view(s) were taken. ML and spot compression CC view(s) were taken of the left breast. Prior study comparison: June 16, 2016, bilateral MG screening mammo w CAD. April 06, 2012, bilateral digital screening mammo w/CAD. The breast tissue is heterogeneously dense. This may lower the sensitivity of mammography. Finding #1: There is an equal density (isodense), indistinct round mass located 10 cm from the nipple in the inner quadrant of the left breast this disperses on compression. Finding #2: There are typically benign vascular calcifications in the left breast. No significant changes in finding since June 16, 2016 and April 06, 2012. These results were verbally communicated with the patient and result sheet given to the patient on 02/01/20. ASSESSMENT: Benign, BI-RAD 2 RECOMMENDATION: Routine screening mammogram of both breasts in 1 year. Manage on a clinical basis with regard to previous palpable abnormality.
== END | disposition home or self-care (01) ==
LOC: RADMAMWWP 10:22
PROVIDERS: ATTEND Obstetrics & Gynecology
DX: N63.20 Unspecified lump in the left breast, unspecified quadrant (principal)
CPT/HCPCS: 77066

== ENCOUNTER 2021-01-17 12:16 | Observation (INO) | payer OTHER ==
[2021-01-17] MEDS ORDERED: ASPIRIN 81 MG PO STA (12:37)
--- NOTE | 2021-01-17 12:39 | ED ---
General Adult HPI - General Chief complaint: Chest Pain Stated complaint: chest discomfort Time Seen by Provider: 01/17/21 12:29 Source: patient, RN notes reviewed Mode of arrival: ambulatory Limitations: no limitations - History of Present Illness Initial comments: Patient is a pleasant 60-year-old female presenting to the emergency Department with complaints of chest discomfort. Onset of symptoms was a couple of days ago. Discomfort is mild. Discomfort doesn't worsen with exertion. Patient has been fatigued and has some exertional dyspnea. Patient also has some lightheadedness associated. Patient did have palpitations at one time previousl y. Patient does have history of atrial fibrillation and is on Eliquis for this. - Related Data Home Medications Medication Instructions Recorded Confirmed Tolterodine Tartrate [Detrol LA] 4 mg PO DAILY 01/13/14 01/17/21 allopurinoL [Zyloprim] 100 mg PO DAILY 01/13/14 01/17/21 Omeprazole [PriLOSEC] 20 mg PO AC-BID 01/14/14 01/17/21 Apixaban [Eliquis] 5 mg PO BID 01/17/21 01/17/21 Aspirin EC [Ecotrin Low Dose] 81 mg PO DAILY 01/17/21 01/17/21 Gabapentin 300 mg PO BID 01/17/21 01/17/21 Metoprolol Tartrate [Lopressor] 50 mg PO BID 01/17/21 01/17/21 Multivitamins, Thera [Multivitamin 1 tab PO DAILY 01/17/21 01/17/21 (formulary)] Simvastatin [Zocor] 80 mg PO HS 01/17/21 01/17/21 amLODIPine [Norvasc] 5 mg PO DAILY 01/17/21 01/17/21 calcitrioL [Rocaltrol] 0.25 mcg PO TUFR 01/17/21 01/17/21 Allergies Allergy/AdvReac Type Severity Reaction Status Date / Time celecoxib [From Celebrex] Allergy Stomach Verified 01/17/21 12:53 issues Review of Systems ROS Statement: Those systems with pertinent positive or pertinent negative responses have been documented in the HPI. ROS Other: All systems not noted in ROS Statement are negative. Constitutional: Denies: fever Eyes: Denies: eye pain ENT: Denies: ear pain Respiratory: Reports: as per HPI. 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" Last Myocardial Infarction Date:: october 2005 History of Any Multi-Drug Resistant Organisms: None Reported Past Surgical History: Appendectomy, Bowel Resection, Heart Catheterization, Heart Catheterization With Stent, Joint Replacement, Orthopedic Surgery, Pacemaker Additional Past Surgical History / Comment(s): 2 CORONARY STENTS, bowel surgery for perforations with COLOSTOMY, later REVERSAL OF COLOSTOMY, regla hip replacements-mult, arthroscopy left knee, rt knee replacement, rt carpal tunnel, kidney biopsy, urethral stent Past Anesthesia/Blood Transfusion Reactions: Previous Problems w/ Anesthesia, Motion Sickness Additional Past Anesthesia/Blood Transfusion Reaction / Comment(s): woke up during hip surgeries Date of Last Stent Placement:: 2005 Type of Cardiac Device: Biventricular Pacemaker, Permanent Pacemaker Device Placement Date:: 04/21/18 Past Psychological History: No Psychological Hx Reported Smoking Status: Never smoker Past Alcohol Use History: Occasional Past Drug Use History: None Reported - Past Family History Mother Family Medical History: Cancer Father Family Medical History: CVA/TIA, Diabetes Mellitus, Deep Vein Thrombosis (DVT) Additional Family Medical History / Comment(s): heart disease. stroke General Exam Limitations: no limitations General appearance: alert, in no apparent distress Head exam: Present: normocephalic Eye exam: Present: normal appearance Neck exam: Present: normal inspection Respiratory exam: Present: normal lung sounds bilaterally Cardiovascular Exam: Present: irregular rhythm Expanded Peripheral pulses: 2+: Radial (R), Radial (L), Dorsalis Pedis (R), Dorsalis Ped is (L) GI/Abdominal exam: Present: soft. Absent: tenderness Extremities exam: Present: normal inspection. Absent: pedal edema, calf tenderness Neurological exam: Present: alert Psychiatric exam: Present: normal affect, normal mood Skin exam: Present: normal color Course Vital Signs 01/17/21 01/17/21 12:20 12:48 Temperature 98.0 F Pulse Rate 88 Respiratory 18 18 Rate Blood Pressure 137/80 O2 Sat by Pulse 99 Oximetry EKG Findings - EKG Comments: EKG Findings:: Paced rhythm with a rate of 62. Appearance of underlying atrial flutter fibrillation. QRS 198. QT 498. QTC 505. Right axis. Wide QRS complex. Prominent T waves. Medical Decision Making - Medical Decision Making Patient reevaluated and resting comfortably in bed. Patient updated on results and plan. Case was discussed with Dr. Jha, covering for Dr. Campbell, who will admit. - Lab Data Result diagrams: 01/17/21 13:12 01/17/21 13:12 Lab Results 01/17/21 01/17/21 01/17/21 Range/Units 13:12 13:12 13:12 WBC 7.6 (3.8-10.6) k/uL RBC 4.62 (3.80-5.40) m/uL Hgb 14.0 (11.4-16.0) gm/dL Hct 41.4 (34.0-46.0) % MCV 89.6 (80.0-100.0) fL MCH 30.2 (25.0-35.0) pg MCHC 33.7 (31.0-37.0) g/dL RDW 12.7 (11.5-15.5) % Plt Count 241 (150-450) k/uL MPV 6.6 Neutrophils % 52 % Lymphocytes % 38 % Monocytes % 6 % Eosinophils % 2 % Basophils % 0 % Neutrophils # 3.9 (1.3-7.7) k/uL Lymphocytes # 2.9 (1.0-4.8) k/uL Monocytes # 0.5 (0-1.0) k/uL Eosinophils # 0.2 (0-0.7) k/uL Basophils # 0.0 (0-0.2) k/uL PT 10.7 (9.0-12.0) sec INR 1.0 (<1.2) APTT 23.5 (22.0-30.0) sec Sodium 139 (137-145) mmol/L Potassium 4.2 (3.5-5.1) mmol/L Chloride 112 H (98-107) mmol/L Carbon Dioxide 19 L (22-30) mmol/L Anion Gap 8 mmol/L BUN 22 H (7-17) mg/dL Creatinine 1.17 H (0.52-1.04) mg/dL Est GFR (CKD-EPI)AfAm 58 (>60 ml/min/1.73 sqM) Est GFR (CKD-EPI)NonAf 50 (>60 ml/min/1.73 sqM) Glucose 141 H (74-99) mg/dL Calcium 9.5 (8.4-10.2) mg/dL Magnesium 1.9 (1.6-2.3) mg/dL Total Bilirubin 0.5 (0.2-1.3) mg/dL AST 37 H (14-36) U/L ALT 23 (4-34) U/L Alkaline Phosphatase 45 (38-126) U/L Troponin I (0.000-0.034) ng/mL NT-Pro-B Natriuret Pep pg/mL Total Protein 6.9 (6.3-8.2) g/dL Albumin 4.1 (3.5-5.0) g/dL 01/17/21 01/17/21 Range/Units 13:12 13:12 WBC (3.8-10.6) k/uL RBC (3.80-5.40) m/uL Hgb (11.4-16.0) gm/dL Hct (34.0-46.0) % MCV (80.0-100.0) fL MCH (25.0-35.0) pg MCHC (31.0-37.0) g/dL RDW (11.5-15.5) % Plt Count (150-450) k/uL MPV Neutrophils % % Lymphocytes % % Monocytes % % Eosinophils % % Basophils % % Neutrophils # (1.3-7.7) k/uL Lymphocytes # (1.0-4.8) k/uL Monocytes # (0-1.0) k/uL Eosinophils # (0-0.7) k/uL Basophils # (0-0.2) k/uL PT (9.0-12.0) sec INR (<1.2) APTT (22.0-30.0) sec Sodium (137-145) mmol/L Potassium (3.5-5.1) mmol/L Chloride (98-107) mmol/L Carbon Dioxide (22-30) mmol/L Anion Gap mmol/L BUN (7-17) mg/dL Creatinine (0.52-1.04) mg/dL Est GFR (CKD-EPI)AfAm (>60 ml/min/1.73 sqM) Est GFR (CKD-EPI)NonAf (>60 ml/min/1.73 sqM) Glucose (74-99) mg/dL Calcium (8.4-10.2) mg/dL Magnesium (1.6-2.3) mg/dL Total Bilirubin (0.2-1.3) mg/dL AST (14-36) U/L ALT (4-34) U/L Alkaline Phosphatase (38-126) U/L Troponin I <0.012 (0.000-0.034) ng/mL NT-Pro-B Natriuret Pep 1020 pg/mL Total Protein (6.3-8.2) g/dL Albumin (3.5-5.0) g/dL - Radiology Data Radiology results: image reviewed (Chest x-ray shows no acute process) Disposition Clinical Impression: Chest pain Disposition: ADMITTED IP TO THIS HOSP Is patient prescribed a controlled substance at d/c from ED?: No Referrals: Nadia Carrion MD [Primary Care Provider] - 1-2 days Decision Time: 14:13
[2021-01-17 13:20] LABS: Basophils % (A) 0 %; Eosinophils # (A) 0.2 k/uL (0-0.7); Eosinophils % (A) 2 %; HCT 41.4 % (34.0-46.0); Lymphocytes # (A) 2.9 k/uL (1.0-4.8); Lymphocytes % (A) 38 %; MCH 30.2 pg (25.0-35.0); MCHC 33.7 g/dL (31.0-37.0); MCV 89.6 fL (80.0-100.0); Mean Platelet Volume 6.6; Monocytes # (A) 0.5 k/uL (0-1.0); Monocytes % (A) 6 %; Neutrophils # (A) 3.9 k/uL (1.3-7.7); Neutrophils % (A) 52 %; Platelet Count 241 k/uL (150-450); RBC 4.62 m/uL (3.80-5.40); RDW 12.7 % (11.5-15.5); WBC 7.6 k/uL (3.8-10.6)
[2021-01-17 13:32] LABS: Albumin 4.1 g/dL (3.5-5.0); Calcium 9.5 mg/dL (8.4-10.2); Total Bilirubin 0.5 mg/dL (0.2-1.3); Total Protein 6.9 g/dL (6.3-8.2)
--- NOTE | 2021-01-17 13:36 | XR ---
EXAMINATION TYPE: XR chest 2V DATE OF EXAM: 01/17/2021 COMPARISON: 04/22/2018 HISTORY: Chest pain TECHNIQUE: Frontal and lateral views of the chest are obtained. FINDINGS: There is no focal air space opacity, pleural effusion, or pneumothorax seen. The cardiac silhouette size is within normal limits. The generator in left pectoral region, there are leads in th e right atrium, right ventricle, coronary sinus as on prior exam, there is a spinal curvature and the re are overlying leads, stable elevation of the right hemidiaphragm. Aorta is dense. The osseous str uctures are intact. IMPRESSION: No acute cardiopulmonary process.
[2021-01-17 13:37] LABS: Potassium 4.2 mmol/L (3.5-5.1)
[2021-01-17 13:38] LABS: Magnesium 1.9 mg/dL (1.6-2.3)
[2021-01-17 13:49] LABS: Partial Thromboplastin Time 23.5 sec (22.0-30.0); Prothrombin Time 10.7 sec (9.0-12.0)
[2021-01-17] MEDS ORDERED: ACETAMINOPHEN TAB 325 MG TAB PO PRN (14:04)
[2021-01-17] MEDS ORDERED: NALOXONE 0.4 MG/ML 1 ML VIAL IV PRN (14:04)
[2021-01-17] MEDS ORDERED: NITROGLYCERIN SL TABS 0.4 MG TAB SUBLINGUAL PRN (14:13)
--- NOTE | 2021-01-17 16:21 | P.HPIM ---
History of Present Illness H&P Date: 01/17/21 Chief Complaint: Dyspnea on exertion, palpitations 60 year old woman with history of CAD, hypertension, hyperlipidemia, complete heart block status post biventricular pacemaker, atrial fibrillation/flutter on eliquis, lupus nephritis now with CK D stage III presented with dyspnea on exertion as well as palpitations. Patient says her symptoms started approximately 1 week ago with an episode of vertigo resulting in nausea and vomiting. Since then she has no longer had any nausea and vomiting, but has noticed that she's felt palpitations similar to when she had a complete heart block warranting pacemaker plantation. She knows that when she walks she starts to feel short of breath and feels palpitations as if her heart is racing. She denies symptoms of chest pain, fevers, chills, orthopnea, cough, syncope, presyncope, abdominal pain, dysuria, dyschezia, numbness/weakness of extremities. In the emergency room, patient is hemodynamically stable on room air. CBC is unremarkable. Chemistries are baseline. Troponin was negative. BNP was elevated at 1020. EKG demonstrated atrial flutter with a ventricular paced rhythm. Chest x-ray shows no acute cardiopulmonary pathology. 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" Last Myocardial Infarction Date:: october 2005 History of Any Multi-Drug Resistant Organisms: None Reported Past Surgical History: Appendectomy, Bowel Resection, Heart Catheterization, Heart Catheterization With Stent, Joint Replacement, Orthopedic Surgery, Pacemaker Additional Past Surgical History / Comment(s): 2 CORONARY STENTS, bowel surgery for perforations with COLOSTOMY, later REVERSAL OF COLOSTOMY, regla hip replacements-mult, arthroscopy left knee, rt knee replacement, rt carpal tunnel, kidney biopsy, urethral stent Past Anesthesia/Blood Transfusion Reactions: Previous Problems w/ Anesthesia, Motion Sickness Additional Past Anesthesia/Blood Transfusion Reaction / Comment(s): woke up during hip surgeries Date of Last Stent Placement:: 2005 Type of Cardiac Device: Biventricular Pacemaker, Permanent Pacemaker Device Placement Date:: 04/21/18 Past Psychological History: No Psychological Hx Reported Smoking Status: Never smoker Past Alcohol Use History: Occasional Past Drug Use History: None Reported - Past Family History Mother Family Medical History: Cancer Father Family Medical History: CVA/TIA, Diabetes Mellitus, Deep Vein Thrombosis (DVT) Additional Family Medical History / Comment(s): heart disease. stroke Medications and Allergies Home Medications Medication Instructions Recorded Confirmed Type Tolterodine Tartrate [Detrol LA] 4 mg PO DAILY 01/13/14 01/17/21 History allopurinoL [Zyloprim] 100 mg PO DAILY 01/13/14 01/17/21 History Omeprazole [PriLOSEC] 20 mg PO AC-BID 01/14/14 01/17/21 History Apixaban [Eliquis] 5 mg PO BID 01/17/21 01/17/21 History Aspirin EC [Ecotrin Low Dose] 81 mg PO DAILY 01/17/21 01/17/21 History Gabapentin 300 mg PO BID 01/17/21 01/17/21 History Metoprolol Tartrate [Lopressor] 50 mg PO BID 01/17/21 01/17/21 History Multivitamins, Thera [Multivitamin 1 tab PO DAILY 01/17/21 01/17/21 History (formulary)] Simvastatin [Zocor] 80 mg PO HS 01/17/21 01/17/21 History amLODIPine [Norvasc] 5 mg PO DAILY 01/17/21 01/17/21 History calcitrioL [Rocaltrol] 0.25 mcg PO TUFR 01/17/21 01/17/21 History Allergies Allergy/AdvReac Type Severity Reaction Status Date / Time celecoxib [From Celebrex] Allergy Stomach Verified 01/17/21 12:53 issues Physical Exam Osteopathic Statement: *. No significant issues noted on an osteopathic structural exam other than those noted in the History and Physical/Consult. Vitals: Vital Signs Temp Pulse Resp BP Pulse Ox 01/17/21 15:00 66 16 111/77 98 01/17/21 14:00 68 16 98 01/17/21 13:23 16 01/17/21 12:48 18 01/17/21 12:20 98.0 F 88 18 137/80 99 Intake and Output 01/17/21 01/17/21 01/17/21 06:59 14:59 22:59 Other: Weight 95.254 kg Gen: awake, alert HEENT: normocephalic, atraumatic, good hearing acuity, moist mucous membranes Resp: good air exchange, breathing comfortably with no accessory muscle use, clear to auscultation bilaterally without wheezes or crackles CVS: good distal perfusion x 4, irregular rhythm, normal rate without murmurs GI: soft, NTTP, ND, appropriate bowel sounds : no SPT, no CVAT, newton catheter not present MSK: Trace pitting edema, no clubbing Neuro: non-focal, moving all extremities Psych: cooperative, euthymic mood Results CBC & Chem 7: 01/17/21 13:12 01/17/21 13:12 Labs: Abnormal Lab Results - Last 24 Hours (Table) 01/17/21 Range/Units 13:12 Chloride 112 H (98-107) mmol/L Carbon Dioxide 19 L (22-30) mmol/L BUN 22 H (7-17) mg/dL Creatinine 1.17 H (0.52-1.04) mg/dL Glucose 141 H (74-99) mg/dL AST 37 H (14-36) U/L Assessment and Plan Assessment: Dyspnea on exertion Trace lower extremity edema Palpitations History of complete heart block status post biventricular pacemaker Atrial fibrillation/flutter, rate controlled via pacing -Admit to observation, telemetry -Cardiology consult, appreciate recommendations -Echocardiogram -Trend troponins -EKG/nitro when necessary for chest pain -Pacemaker interrogation -Patient was asked alert in the ER, aspirin 81 mg daily -Switched home simvastatin to atorvastatin -Continue metoprolol twice a day, Eliquis twice a day History of CAD Hypertension Hyperlipidemia History of lupus nephritis CKD stage III -Home medications were reviewed and reconciled Patient is a full code DVT prophylaxis with Apixaban
[2021-01-17] MEDS: ATORVASTATIN 80 MG TAB PO SCH (16:26)
[2021-01-17 19:53] VITALS: RESP 18
[2021-01-17] MEDS: NITROGLYCERIN OINT 1 INCH/GM PACKET TOPICAL SCH (20:51)
[2021-01-17] MEDS: APIXABAN 5 MG TAB PO SCH (20:52)
[2021-01-17] MEDS: METOPROLOL TARTRATE 50 MG TAB PO SCH (20:52)
[2021-01-17] MEDS: GABAPENTIN 300 MG CAP PO SCH (20:52)
[2021-01-18] MEDS: NITROGLYCERIN OINT 1 INCH/GM PACKET TOPICAL SCH ×3 (00:24→14:15)
[2021-01-18] MEDS ORDERED: PANTOPRAZOLE 40 MG TABLET PO SCH (07:30)
[2021-01-18 07:50] VITALS: BP 124/80; PULSE 66; TEMP 97.8
[2021-01-18] MEDS ORDERED: OXYBUTYNIN XL 5 MG TAB.ER.24 PO SCH (09:00)
[2021-01-18] MEDS ORDERED: MULTIVITAMINS, THERA 1 EACH TAB PO SCH (09:00)
[2021-01-18] MEDS ORDERED: allopurinoL 100 MG TAB PO SCH (09:00)
[2021-01-18] MEDS ORDERED: ASPIRIN 81 MG PO SCH (09:00)
[2021-01-18] MEDS ORDERED: ASPIRIN 325 MG TAB PO SCH (09:00)
[2021-01-18] MEDS ORDERED: amLODIPine 5 MG TAB PO SCH (09:00)
[2021-01-18 09:13] LABS: Basophils # (A) 0.01 X 10*3/uL (0.00-0.10); Basophils % (A) 0.2 %; Eosinophils # (A) 0.14 X 10*3/uL (0.04-0.35); Eosinophils % (A) 2.3 %; HCT 39.3 % (37.2-46.3); Lymphocytes # (A) 2.31 X 10*3/uL (0.90-5.00); Lymphocytes % (A) 37.4 %; MCHC 33.1 g/dL (32.0-37.0); MCV 90.8 fL (80.0-97.0); Mean Platelet Volume 9.8 fL (9.5-12.2); Monocytes # (A) 0.59 X 10*3/uL (0.20-1.00); Monocytes % (A) 9.6 %; Neutrophils # (A) 3.11 X 10*3/uL (1.80-7.70); Neutrophils % (A) 50.3 %; Platelet Count 223 X 10*3/uL (140-440); RBC 4.33 X 10*6/uL (4.10-5.20); RDW 12.8 % (11.5-14.5); WBC 6.17 X 10*3/uL (4.50-10.00)
[2021-01-18] MEDS: APIXABAN 5 MG TAB PO SCH (09:27)
[2021-01-18] MEDS: METOPROLOL TARTRATE 50 MG TAB PO SCH (09:28)
[2021-01-18] MEDS: ATORVASTATIN 80 MG TAB PO SCH (09:28)
[2021-01-18] MEDS: GABAPENTIN 300 MG CAP PO SCH (09:28)
[2021-01-18 10:10] LABS: African American GFR (CKD) 62.8 (60.0-200.0); Anion Gap 7.7 mmol/L (4.00-12.00); Calcium 9.2 mg/dL (8.7-10.3); Carbon Dioxide 23.3 mmol/L (21.6-31.8); Chol/HDL Ratio 3.29; LDL Cholesterol,Calculated 68.6 mg/dL (0.0-131.0); Magnesium 2.1 mg/dL (1.5-2.4); Non-African American GFR(CKD) 54.1 (60.0-200.0); Potassium 4.1 mmol/L (3.5-5.5); VLDL Calculation 27.4 mg/dL (5.00-40.00)
--- NOTE | 2021-01-18 11:00 | ECHOF ---
Referral Reason:BLANC, mildly elevated BNP MEASUREMENTS -------- HEIGHT: 162.6 cm WEIGHT: 95.3 kg BP: RVIDd: 2.4 cm (< 3.3) IVSd: 0.8 cm (0.6 - 1.1) LVIDd: 4.7 cm (3.9 - 5.3) LVPWd: 1.3 cm (0.6 - 1.1) IVSs: 1.3 cm LVIDs: 3.1 cm LVPWs: 1.8 cm Ao Diam: 3.3 cm (2.0 - 3.7) AV Cusp: 2.5 cm (1.5 - 2.6) LA Diam: 3.6 cm (2.7 - 3.8) MV EXCURSION: 14.577 mm (> 18.000) MV EF SLOPE: 108 mm/s (70 - 150) EPSS: 1.6 cm MV E Rico: 0.59 m/s MV DecT: 126 ms MV A Rico: 0.74 m/s MV E/A Ratio: 0.80 RAP: 5.00 mmHg RVSP: 9.56 mmHg FINDINGS -------- Paced rhythm. Pacerwire seen in RV and RA. This was a technically difficult study with suboptimal views. The left ventricular size is normal. Left ventricular wall thickness is normal. Overall left vent ricular systolic function is mildly impaired with, an EF between 45 - 50 %. There is a structure at tached to the intraventricular septum. The right ventricle is normal in size. Paradoxical motion of the right ventricular septum is consis tent with a right ventricular pacemaker. The left atrial size is normal. The right atrial size is normal. Lumason used The aortic valve is trileaflet and appears structurally normal. The mitral valve is normal. There is trace mitral regurgitation. The tricuspid valve appears structurally normal. Trace tricuspid regurgitation present. Right steffi tricular systolic pressure is normal at < 35 mmHg. There is no pulmonic regurgitation present. The aortic root size is normal. There is no pericardial effusion. CONCLUSIONS -------- 1. Pacerwire seen in RV and RA. 2. The left ventricular size is normal. 3. Left ventricular wall thickness is normal. 4. There is prominent mid intraventricular septum. 5. Paradoxical motion of the right ventricular septum is consistent with a right ventricular pacemake r. 6. There is trace mitral regurgitation. 7. There is no pericardial effusion. CHIEF ULTRASOUND TECHNOLOGIST: Darlene Tobin RDCS
--- NOTE | 2021-01-18 13:41 | CONS ---
CONSULTATION HISTORY OF PRESENT ILLNESS: This is a lady with a history of CAD, prior PCI of LAD in 2005, and she also has had ventricular septal defect with repair. Based on the old chart information, but this is not any active problem. In 2018, she had a biventricular pacemaker placed by Dr. Berrios and the right ventricular lead was kept in the right ventricular apex. She is here with mainly complaints of having some episode of a dizzy feeling that seem to occur in a random fashion. She also complained of some sharp pain in the chest, but the pain seems to be very atypical, sharp in nature, which has resolved. She has underlying history of paroxysmal atrial fibrillation, takes Eliquis for this. She also feels dizzy from time to time. She is in a ventricular paced rhythm with atrial sensing. She is quite comfortable, asymptomatic, resting at the time of my evaluation. PAST MEDICAL HISTORY: 1. Positive for CAD with stenting of LAD in 2005. 2. She also has a biventricular pacemaker. 3. History of intermittent AV block and went on to have a biventricular pacemaker. 4. She has history of ventricular septal defect which healed spontaneously without consequence. This is based on the old chart review. MEDICATIONS: Medications at home include: Zocor 80 mg daily, amlodipine 5 mg daily, gabapentin, metoprolol tartrate 50 mg b.i.d., Eliquis 5 mg b.i.d. and also takes omeprazole 20 mg daily. The patient's EKG revealed what seems to be an underlying atrial fib with a ventricular paced rhythm. There are occasional dual-chamber pacing as well but underlying rhythm may be atrial fibrillation. There is a previous EKG 2017, which revealed a right bundle with underlying sinus rhythm, but the current EKG revealed more or less a paced beat. Echocardiogram revealed ejection fraction of 45-50 percent with some septal hypokinesia. There is no significant pulmonary hypertension. PHYSICAL EXAMINATION: On examination, blood pressure is 124/70, pulse rate is 64 per minute. HEENT unremarkable. Fundus was not examined by me. NECK is supple. There is no JVD. I do not hear a carotid bruit. HEART exam reveals S1, S2 heard normally. There is a short systolic murmur at left sternal border, not significant. LUNGS revealed bilateral decent air entry. ABDOMEN is soft, nontender. Lower extremities reveal normal pulses. No edema. Central nervous system is grossly within normal limits. IMPRESSION: 1. Atypical chest pain. 2. Dizziness, nonspecific. Pacemaker function is normal. 3. History of high-grade AV block with a dual-chamber/biventricular pacemaker. 4. History of coronary artery disease, prior PCI and also history of VSD with spontaneous healing. RECOMMENDATIONS: From a cardiac standpoint, I do not see any contraindication. Patient can be discharged with the understanding that she should follow up with Dr. Cagle in the next 2 weeks and we can interrogate her device at that time, but I do not believe we are dealing with any acute ischemia. She can also have a stress test as an outpatient. I discussed my thoughts in detail with the patient. She can be discharged and follow up with Dr. Cagle in 2 weeks. MMJORGE / CARLOSN: [id number] /
--- NOTE | 2021-01-18 13:48 | P.DS ---
Providers Date of admission: 01/17/21 14:13 Expected date of discharge: 01/18/21 Attending physician: Ricardo Scott MD Consults: 01/17/21 14:05 Consult Physician Routine Consulting Provider: Jordi Stephenson Consult Reason/Comments: Chest Pain, Hx of BiV s/p CHB, AFlutter - Vpaced Do you want consulting provider notified?: Yes Primary care physician: Nadia Carrion MD Hospital Course: HPI: 60 year old woman with history of CAD, hypertension, hyperlipidemia, complete heart block status post biventricular pacemaker, atrial fibrillation/flutter on eliquis, lupus nephritis now with CK D stage III presented with dyspnea on exertion as well as palpitations. Patient says her symptoms started approximately 1 week ago with an episode of vertigo resulting in nausea and vomiting. Since then she has no longer had any nausea and vomiting, but has noticed that she's felt palpitations similar to when she had a complete heart block warranting pacemaker plantation. She knows that when she walks she starts to feel short of breath and feels palpitations as if her heart is racing. She denies symptoms of chest pain, fevers, chills, orthopnea, cough, syncope, presyncope, abdominal pain, dysuria, dyschezia, numbness/weakness of extremities. In the emergency room, patient is hemodynamically stable on room air. CBC is unremarkable. Chemistries are baseline. Troponin was negative. BNP was elevated at 1020. EKG demonstrated atrial flutter with a ventricular paced rhythm. Chest x-ray shows no acute cardiopulmonary pathology. Hospital Course: Dyspnea on exertion Trace lower extremity edema Palpitations History of complete heart block status post biventricular pacemaker Atrial fibrillation/flutter, rate controlled via pacing History of CAD Hypertension Hyperlipidemia History of lupus nephritis CKD stage III Patient was admitted to observation telemetry. 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 Patient did report improvement of symptoms upon ambulation with some rest. Pacemaker will be interrogated on outpatient basis. Only medication change was replacing simvastatin with atorvastatin. Assessment: Gen: awake, alert HEENT: normocephalic, atraumatic, good hearing acuity, moist mucous membranes Resp: good air exchange, breathing comfortably with no accessory muscle use, clear to auscultation bilaterally without wheezes or crackles CVS: good distal perfusion x 4, irregular rhythm, normal rate without murmurs GI: soft, NTTP, ND, appropriate bowel sounds : no SPT, no CVAT, newton catheter not present MSK: Trace pitting edema, no clubbing Neuro: non-focal, moving all extremities Psych: cooperative, euthymic mood Patient Condition at Discharge: Good Plan - Discharge Summary Discharge Rx Participant: Yes New Discharge Prescriptions: New Atorvastatin [Lipitor] 80 mg PO DAILY #30 tab Continue Tolterodine Tartrate [Detrol LA] 4 mg PO DAILY Omeprazole [PriLOSEC] 20 mg PO AC-BID Multivitamins, Thera [Multivitamin (formulary)] 1 tab PO DAILY Metoprolol Tartrate [Lopressor] 50 mg PO BID Aspirin EC [Ecotrin Low Dose] 81 mg PO DAILY Gabapentin 300 mg PO BID calcitrioL [Rocaltrol] 0.25 mcg PO TUFR amLODIPine [Norvasc] 5 mg PO DAILY Apixaban [Eliquis] 5 mg PO BID Discontinued allopurinoL [Zyloprim] 100 mg PO DAILY Simvastatin [Zocor] 80 mg PO HS Discharge Medication List Tolterodine Tartrate [Detrol LA] 4 mg PO DAILY 01/13/14 [History] Omeprazole [PriLOSEC] 20 mg PO AC-BID 01/14/14 [History] Apixaban [Eliquis] 5 mg PO BID 01/17/21 [History] Aspirin EC [Ecotrin Low Dose] 81 mg PO DAILY 01/17/21 [History] Gabapentin 300 mg PO BID 01/17/21 [History] Metoprolol Tartrate [Lopressor] 50 mg PO BID 01/17/21 [History] Multivitamins, Thera [Multivitamin (formulary)] 1 tab PO DAILY 01/17/21 [History] amLODIPine [Norvasc] 5 mg PO DAILY 01/17/21 [History] calcitrioL [Rocaltrol] 0.25 mcg PO TUFR 01/17/21 [History] Atorvastatin [Lipitor] 80 mg PO DAILY #30 tab 01/18/21 [Rx] Follow up Appointment(s)/Referral(s): Nadia Carrion MD [Primary Care Provider] - 1-2 days Zachariah Cagle MD [STAFF PHYSICIAN] - 01/23/21 9:15 am Patient Instructions/Handouts: Angina (DC) Discharge Disposition: HOME SELF-CARE
== END 2021-01-18 13:54 | disposition home or self-care (01) ==
LOC: EC 12:16 → 6NMEDSUR 14:13
PROVIDERS: ADMIT Internal Medicine; ATTEND Internal Medicine
DX: R06.09 Other forms of dyspnea (principal); R07.89 Other chest pain; R79.89 Other specified abnormal findings of blood chemistry; I25.10 Atherosclerotic heart disease of native coronary artery without angina pectoris; I48.0 Paroxysmal atrial fibrillation; I12.9 Hypertensive chronic kidney disease with stage 1 through stage 4 chronic kidney disease, or unspecified chronic kidney disease; N18.30 Chronic kidney disease, stage 3 unspecified; R60.0 Localized edema; I48.92 Unspecified atrial flutter; Q21.0 Ventricular septal defect; I44.2 Atrioventricular block, complete; M32.14 Glomerular disease in systemic lupus erythematosus; E78.5 Hyperlipidemia, unspecified; M79.7 Fibromyalgia; K21.9 Gastro-esophageal reflux disease without esophagitis; Z20.822 Contact with and (suspected) exposure to COVID-19; M19.90 Unspecified osteoarthritis, unspecified site; Z79.01 Long term (current) use of anticoagulants; Z79.82 Long term (current) use of aspirin; Z79.899 Other long term (current) drug therapy; Z88.6 Allergy status to analgesic agent; Z85.828 Personal history of other malignant neoplasm of skin; Z95.0 Presence of cardiac pacemaker; Z96.651 Presence of right artificial knee joint; Z96.643 Presence of artificial hip joint, bilateral; Z90.49 Acquired absence of other specified parts of digestive tract; Z98.890 Other specified postprocedural states; Z95.5 Presence of coronary angioplasty implant and graft; Z82.3 Family history of stroke; Z83.3 Family history of diabetes mellitus; Z82.49 Family history of ischemic heart disease and other diseases of the circulatory system; Z80.9 Family history of malignant neoplasm, unspecified
CPT/HCPCS: 93005 ×2; 99285; 36415; 93306; 83880; 80061; 80053; 80048; 83735 ×2; 84484; 85025 ×2; 85610; 85730; 87635; 71046; G0378 ×2; Q9950

== ENCOUNTER 2023-04-27 14:06 | Day surgery (SDC) | payer BC, OTHER ==
[2023-04-20 13:48] VITALS: BMI 35.6
[~2023-04-27 14:06] MED LIST changes: +SODIUM CHLORIDE 0.9% 1,000 ML IV SCH; +ceFAZolin 1 GM in SODIUM CHLORIDE 0.9% IRRIG BTL 250 ML IRRIGATION PRN; -ceFAZolin 1,000 MG in SODIUM CHLORIDE 0.9% IRRIGATIO 250 ML IRRIGATION ONE
[2023-04-27] MEDS ORDERED: SODIUM CHLORIDE 0.9% 1,000 ML IV ONE (14:18)
[2023-04-27] MEDS ORDERED: fentaNYL (PF) 50 MCG/ML 2 ML AMP ONE (15:30)
[2023-04-27] MEDS ORDERED: MIDAZOLAM 2 MG/2 ML VIAL ONE (15:30)
[2023-04-27] MEDS ORDERED: HYDROmorphone (PF) 1 MG/ML ONE (15:30)
[2023-04-27] MEDS ORDERED: LIDOCAINE 2% INJ 20 MG/ML (2 ML VIAL) ONE (15:30)
[2023-04-27] MEDS ORDERED: PROPOFOL 10 MG/ML 20 ML VIAL IV ONE (15:30)
[2023-04-27 15:52] LABS: Basophils % (A) 0 %; Eosinophils # (A) 0.2 k/uL (0-0.7); Eosinophils % (A) 2 %; HCT 38.7 % (34.0-46.0); Lymphocytes # (A) 2.2 k/uL (1.0-4.8); Lymphocytes % (A) 32 %; MCH 31.5 pg (25.0-35.0); MCHC 33.6 g/dL (31.0-37.0); MCV 93.8 fL (80.0-100.0); Mean Platelet Volume 9.2; Monocytes # (A) 0.4 k/uL (0-1.0); Monocytes % (A) 6 %; Neutrophils # (A) 3.9 k/uL (1.3-7.7); Neutrophils % (A) 58 %; Platelet Count 231 k/uL (150-450); RBC 4.12 m/uL (3.80-5.40); RDW 12.7 % (11.5-15.5); WBC 6.8 k/uL (3.8-10.6)
[2023-04-27] MEDS ORDERED: LIDOCAINE 1% INJ 10MG/ML (30 ML VIAL-PF) SQ ONE (16:03)
[2023-04-27] MEDS ORDERED: VANCOMYCIN 1,500 MG in SODIUM CHLORIDE 0.9% 500 ML 500 ML IVPB ONE (16:04)
--- NOTE | 2023-04-27 16:18 | P.EPPROC ---
- EP Procedure Note Electrophysiology Procedure Note: Transvenous temporary pacing procedure Indication for the procedure: Severe underlying bradycardia Patient was brought to the EP lab in a fasting state. Written informed consent was obtained prior to the procedure. The right groin was prepped and draped as a protocol. A 6-Ukrainian sheath was placed in the right femoral vein. Via this, a temporary pacing catheter was placed in the right ventricle. Thresholds were interrogated. Temporary pacing was performed through the rest of the procedure. At the end of the entire procedure, the TVP was removed. The sheath was removed and hemostasis was assured. Patient tolerated the procedure well without any acute complications. Procedure performed Transvenous temporary pacing
[2023-04-27 16:35] LABS: African American GFR (CKD) 49 (>60 ml/min/1.73 sqM); Anion Gap 5 mmol/L; Blood Urea Nitrogen 25 mg/dL (7-17); Calcium 9.1 mg/dL (8.4-10.2); Carbon Dioxide 23 mmol/L (22-30); Chloride 112 mmol/L (98-107); Glucose 92 mg/dL (74-99); Non-African American GFR(CKD) 42 (>60 ml/min/1.73 sqM); Potassium 3.9 mmol/L (3.5-5.1); Sodium 140 mmol/L (137-145)
[2023-04-27] MEDS ORDERED: LIDOCAINE 1% INJ 10MG/ML (20 ML MDV) SQ ONE ×2 (16:36)
--- NOTE | 2023-04-27 17:38 | P.EPPROC ---
- EP Procedure Note Electrophysiology Procedure Note: Diagnosis Complete heart block Bi V pacemaker in situ Device at [facility], normal battery depletion Procedure Biventricular pacemaker generator change Details Patient was brought to the EP lab in a fasting state. Written informed consent was obtained prior to the procedure. Conscious sedation provided by anesthesia team IV antibiotics administered. Local anesthesia administered. A 4 cm incision made in the pectoral area. Subfascial pocket made. Chronic biventricular pacemaker generator explanted. Partial capsulectomy was performed Atrial lead position the right atrial appendage. Stable in the right atrial appendage, no fractures on fluoroscopy. Pacing threshold 0.7 V at 0.5 ms, P waves 3.2 mV in pacing impedance 410 ohms RV lead position in the RV apex. No fractures or breaks on fluoroscopy, stable position RV apex. Pacing impedance 400 ohms, no R waves intrinsically LV lead positioned in the LV vein. Leads and lateral vein. No fractures or breaks in fluoroscopy. Pacing threshold 1 V at 1 ms, D1-RV coil. This is an ICD lead, DF 1 New Biventricular pacemaker generator connected to the leads and placed in the subfascial pocket Patient tolerated the procedure well without acute complications Antibiotic pouch IV vancomycin Device programmed to DDD 60-130 with a normal AV delay and and LV offset of 20 ms
[2023-04-27] MEDS: LACTATED RINGERS 1,000 ML IV SCH (18:05)
[2023-04-27] MEDS: PANTOPRAZOLE 40 MG TABLET PO SCH (18:11)
[2023-04-27] MEDS: GABAPENTIN 300 MG CAP PO SCH (20:04)
[2023-04-27] MEDS: METOPROLOL TARTRATE 25 MG TAB PO SCH (20:04)
[2023-04-27] MEDS: ACETAMINOPHEN TAB 325 MG TAB PO PRN (20:04)
[2023-04-27] MEDS ORDERED: ATORVASTATIN 80 MG TAB PO SCH (21:00)
[2023-04-28] MEDS: ACETAMINOPHEN TAB 325 MG TAB PO PRN (05:50)
[2023-04-28] MEDS: LACTATED RINGERS 1,000 ML IV SCH (05:51)
[2023-04-28] MEDS: PANTOPRAZOLE 40 MG TABLET PO SCH (05:51)
[2023-04-28] MEDS: METOPROLOL TARTRATE 25 MG TAB PO SCH (07:53)
[2023-04-28] MEDS: GABAPENTIN 300 MG CAP PO SCH (07:53)
--- NOTE | 2023-04-28 08:25 | DS ---
DISCHARGE SUMMARY Mrs. Lott has complete heart block status post biventricular pacemaker implantation many years back. The device is at [facility], and she underwent a biventricular pacemaker generator change yesterday. A DVP was also placed since she has complete heart block. The device is functioning normally. The leads are functioning normally. Normal fluoroscopic appearance. Normal electrical function. Today, she is doing well. Heart sounds are normal. Breath sounds are clear. She is lying comfortably in bed. No hematoma. Minimal soakage. Heart sounds are normal. The right groin is healed well. IMPRESSION: Complete heart block, status post DVP and dual-chamber biventricular pacemaker generator change yesterday for normal battery depletion. PLAN: Discharge home today on her current medications. No further antibiotics needed. She will follow up in the [facility] in a week's time and will follow up with Dr. Cagle as before. She has been complaining of shortness of breath on exertion, and she will be re- evaluated in the clinic with a andrade walk to see if she needs adjustment for rate responsiveness. She will also see Dr. Cagle regarding this complaint. MMODL / IJN: [id number] /
[2023-04-28] MEDS ORDERED: RIVAROXABAN 20 MG TAB PO SCH (09:00)
[2023-04-28] MEDS ORDERED: OXYBUTYNIN 10 MG TAB.ER.24 PO SCH (09:00)
[2023-04-28] MEDS ORDERED: LOSARTAN 25 MG TAB PO SCH (09:00)
[2023-04-28] MEDS ORDERED: MAGNESIUM OXIDE 400 MG TAB PO SCH (09:00)
[2023-04-28] MEDS ORDERED: ASPIRIN 81 MG PO SCH (09:00)
[2023-04-28 09:16] VITALS: BP 140/83; PULSE 62; RESP 16; TEMP 98.5
== END 2023-04-28 11:31 | disposition home or self-care (01) ==
LOC: CATHEP 14:06 → 6NMEDSUR 17:21 → CATHEP 04-28 11:31
PROVIDERS: ATTEND Internal Medicine Clinical Cardiac Electrophysiology
DX: I44.2 Atrioventricular block, complete (principal); I48.0 Paroxysmal atrial fibrillation; I25.10 Atherosclerotic heart disease of native coronary artery without angina pectoris; I49.5 Sick sinus syndrome; Z79.01 Long term (current) use of anticoagulants; Z79.82 Long term (current) use of aspirin; Z79.899 Other long term (current) drug therapy; Z88.8 Allergy status to other drugs, medicaments and biological substances
CPT/HCPCS: 33229; 80048; 85025; C2621; J3370; J0690; J2001 ×2

== ENCOUNTER → 2024-07-07 | Outpatient (CLI) | payer BC | LOC: LABWHC1 08:01 | PROVIDERS: ATTEND Family Medicine | DX: Z53.9 Procedure and treatment not carried out, unspecified reason (principal) ==

== ENCOUNTER → 2024-07-07 | Outpatient (CLI) | payer BC ==
[2024-07-07 15:12] LABS: Basophils # (A) 0.02 X 10*3/uL (0.00-0.10); Basophils % (A) 0.3 %; Eosinophils # (A) 0.08 X 10*3/uL (0.04-0.35); Eosinophils % (A) 1.1 %; HCT 40.6 % (37.2-46.3); HGB 13.4 g/dL (12.0-15.0); Lymphocytes # (A) 2.54 X 10*3/uL (0.90-5.00); Lymphocytes % (A) 34.8 %; MCH 30.4 pg (27.0-32.0); MCV 92.1 FL (80.0-97.0); Mean Platelet Volume 9.8 FL (9.5-12.2); Monocytes # (A) 0.59 X 10*3/uL (0.20-1.00); Monocytes % (A) 8.1 %; NRBC Per 100 WBC 0 X 10*3/uL (0.00-0.01); Neutrophils # (A) 4.04 X 10*3/uL (1.80-7.70); Neutrophils % (A) 55.4 %; Platelet Count 231 X 10*3/uL (140-440); RBC 4.41 X 10*6/uL (4.10-5.20); RDW 12.8 % (11.5-14.5); WBC 7.29 X 10*3/uL (4.50-10.00)
[2024-07-07 15:47] LABS: BUN/Creat Ratio 21.79 Ratio (12.00-20.00); Blood Urea Nitrogen 30.5 mg/dL (9.0-27.0); Chol/HDL Ratio 3.15 Ratio; Glucose 88 mg/dL (70-110); LDL Cholesterol,Calculated 83.7 mg/dL (0.0-131.0)
[2024-07-07 15:48] LABS: ALT 16 U/L (8-44); AST 23 U/L (13-35); Albumin 4.2 g/dL (3.8-4.9); Albumin/Globulin Ratio 1.62 Ratio (1.60-3.17); Alkaline Phosphatase 61 U/L (41-126); Calcium 9.8 mg/dL (8.7-10.3); Carbon Dioxide 22.3 mmol/L (21.6-31.8); Chloride 107 mmol/L (96-109); Globulin 2.6 g/dL (1.6-3.3); Potassium 4.7 mmol/L (3.5-5.5); Sodium 141 mmol/L (135-145); Total Bilirubin 0.3 mg/dL (0.3-1.2); Total Protein 6.8 g/dL (6.2-8.2)
== END | disposition home or self-care (01) ==
LOC: LABWHC1 08:05
PROVIDERS: ATTEND Internal Medicine Cardiovascular Disease
DX: E78.2 Mixed hyperlipidemia (principal)
CPT/HCPCS: 36415; 80053; 80061; 84443; 85025

== ENCOUNTER 2025-01-23 23:33 | Inpatient (IN) | payer MEDICARE, OTHER ==
[2025-01-24] MEDS: HYDROmorphone 1 MG/ML 1 ML SYRINGE IVP STA ×2 (00:06→02:15)
[2025-01-24] MEDS: HYDROmorphone 1 MG/ML 1 ML SYRINGE IM STA (00:29)
--- NOTE | 2025-01-24 01:23 | ED ---
Lower Extremity Injury HPI - General Chief Complaint: Extremity Injury, Lower Stated Complaint: Left hip pain Time Seen by Provider: 01/23/25 23:52 Source: patient, EMS Mode of arrival: EMS - History of Present Illness Initial Comments: This patient is a 64-year-old woman with history of bilateral hip replacement. She states she has had multiple previous dislocations. The patient states that tonight she shifted, felt a pop and then was not able to move her left hip. She states it is identical to previous episode of dislocation. She denies loss of sensation down the leg. Patient states that EMS had to be called to transport her here as she could not move at all. The patient also relates that with previous episode of reduction her surgeon Dr. Iman ortega had explained to her that there was a feature in her hip that made it such that future reductions would have to be performed in the OR. MD Complaint: hip injury -: minutes(s) Injury: Hip: Right Type of Injury: other Place: home Severity: severe Improves With: immobilization Worsens With: movement Context: other Associated Symptoms: snap/pop sensation, unable to bear weight Treatments Prior to Arrival: other - Related Data Home Medications Medication Instructions Recorded Confirmed Aspirin EC [Ecotrin Low Dose] 81 mg PO DAILY 01/17/21 01/24/25 Gabapentin 300 mg PO BID 01/17/21 01/24/25 Ascorbic Acid [Vitamin C] 500 mg PO DAILY 04/20/23 01/24/25 Losartan [Cozaar] 25 mg PO DAILY 04/20/23 01/24/25 Magnesium Oxide [Magox 400] 400 mg PO DAILY 04/20/23 01/24/25 Metoprolol Tartrate [Lopressor] 25 mg PO BID 04/20/23 01/24/25 Rivaroxaban [Xarelto] 20 mg PO HS 04/20/23 01/25/25 Atorvastatin [Lipitor] 80 mg PO HS 04/27/23 01/24/25 Multivit with Calcium,Iron,Min 1 tab PO DAILY 01/24/25 01/24/25 [Women's Multivitamin] Omeprazole 20 mg PO DAILY 01/24/25 01/24/25 predniSONE 5 mg PO DAILY PRN 01/24/25 01/24/25 valACYclovir HCL [Valtrex] 500 mg PO BID PRN 01/24/25 01/24/25 Previous Rx's Medication Instructions Recorded HYDROcodone/APAP 7.5-325MG [[place] 1 - 2 tab PO Q6H PRN #32 tab 01/25/25 7.5-325] Sennosides [Senokot] 2 tab PO DAILY PRN #60 tablet 01/25/25 Allergies Allergy/AdvReac Type Severity Reaction Status Date / Time celecoxib [From Celebrex] AdvReac Stomach Verified 01/24/25 07:30 issues Review of Systems ROS Statement: Those systems with pertinent positive or pertinent negative responses have been documented in the HPI. ROS Other: All systems not noted in ROS Statement are negative. Constitutional: Denies: fever Respiratory: Denies: cough, dyspnea Cardiovascular: Denies: chest pain, palpitations, edema, syncope Gastrointestinal: Denies: abdominal pain, nausea, vomiting Genitourinary: Denies: dysuria, hematuria Musculoskeletal: Reports: as per HPI, arthralgia. 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 ESTIMATED DATES History of Any Multi-Drug Resistant Organisms: None Reported Past Surgical History: Appendectomy, Bowel Resection, Heart Catheterization, Heart Catheterization With Stent, Joint Replacement, Orthopedic Surgery, Pacemaker Additional Past Surgical History / Comment(s): 2 CORONARY STENTS, bowel surgery for perforations with COLOSTOMY, later REVERSAL OF COLOSTOMY, regla hip replacements-mult, arthroscopy left knee, rt knee replacement, rt carpal tunnel, kidney biopsy, urethral stent Past Anesthesia/Blood Transfusion Reactions: Previous Problems w/ Anesthesia, Motion Sickness Additional Past Anesthesia/Blood Transfusion Reaction / Comment(s): woke up during hip surgeries Date of Last Stent Placement:: 2005 Type of Cardiac Device: Biventricular Pacemaker, Permanent Pacemaker Device Placement Date:: 04/21/18 Past Psychological History: No Psychological Hx Reported Smoking Status: Former smoker Past Drug Use History: Marijuana - Past Family History Mother Family Medical History: Cancer Father Family Medical History: CVA/TIA, Diabetes Mellitus, Deep Vein Thrombosis (DVT) Additional Family Medical History / Comment(s): heart disease. stroke General Exam Limitations: no limitations General appearance: alert, in no apparent distress Head exam: Present: atraumatic, normocephalic Eye exam: Present: normal appearance. Absent: scleral icterus, conjunctival injection Neck exam: Present: normal inspection Respiratory exam: Present: normal lung sounds bilaterally. Absent: respiratory distress, wheezes, rales, rhonchi, stridor Cardiovascular Exam: Present: regular rate, normal rhythm, normal heart sounds. Absent: systolic murmur, diastolic murmur, rubs, gallop GI/Abdominal exam: Present: soft. Absent: distended, tenderness Left Hip exam: Present: tenderness, internal rotation, shortening. Absent: normal inspection, full ROM Knee exam: Present: normal inspection, full ROM. Absent: tenderness, swelling Lower Leg exam: Present: normal inspection, full ROM. Absent: tenderness, swelling Ankle exam: Present: normal inspection, full ROM. Absent: tenderness, swelling Foot/Toe exam: Present: normal inspection, full ROM. Absent: tenderness, swelling Neurovascular tendon exam: Present: no vascular compromise. Absent: pulse deficit, abnormal cap refill, motor deficit, sensory deficit, tendon deficit Neurological exam: Present: alert. Absent: motor sensory deficit Skin exam: Present: warm, dry, intact, normal color. Absent: rash Course Vital Signs 01/23/25 01/24/25 01/24/25 23:38 02:18 04:32 Temperature 98.6 F Pulse Rate 82 65 60 Pulse Rate [ Pulse Oximetery ] Respiratory 18 18 18 Rate Blood Pressure 119/82 154/90 Blood Pressure [Right Arm] O2 Sat by Pulse 98 99 97 Oximetry 01/24/25 01/24/25 06:00 08:00 Temperature Pulse Rate 70 Pulse Rate [ 75 Pulse Oximetery ] Respiratory 17 18 Rate Blood Pressure 143/82 Blood Pressure 131/89 [Right Arm] O2 Sat by Pulse 99 100 Oximetry Medical Decision Making - Medical Decision Making The patient had hip and pelvis x-ray that I interpreted as showing left hip dislocation. No acute fracture. I discussed case with Dr. Dumas who is covering for orthopedics [facility]. Discussed recommendation with the patient to attempt bedside reduction, but the patient does not consent. She states she will only allow the hip to be reduced by Dr. Burnett team. Was pt. sent in by a medical professional or institution (, PA, STYLIST APPRENTICE, urgent care, hospital, or penitentiary...) When possible be specific @ -[No] Did you speak to anyone other than the patient for history (EMS, parent, family, police, friend...)? What history was obtained from this source @ -[No] Did you review nursing and triage notes (agree or disagree)? Why? @ -[I reviewed and agree with nursing and triage notes] Were old charts reviewed (outside hosp., previous admission, EMS record, old EKG, old radiological studies, urgent care reports/EKG's, penitentiary records)? Report findings @ -[No old charts were reviewed] Differential Diagnosis (chest pain, altered mental status, abdominal pain women, abdominal pain men, vaginal bleeding, weakness, fever, dyspnea, syncope, headache, dizziness, GI bleed, back pain, seizure, CVA, palpatations, mental health, musculoskeletal)? @ -[Differential Musculoskeletal Muscular strain, contusion, ligament sprain, fracture, arthritis, septic arthritis, bursitis, cellulitis, muscle spasm, nerve compression, DVT, arterial occlusion, herpes zoster, electrolyte abnormality, tumor.... This is not meant to be in all inclusive list EKG interpreted by me (3pts min.). @ -[ X-rays interpreted by me (1pt min.). @ -[I interpreted as above CT interpreted by me (1pt min.). @ -[None done] U/S interpreted by me (1pt. min.). @ -[None done] What testing was considered but not performed or refused? (CT, X-rays, U/S, labs)? Why? @ -[None] What meds were considered but not given or refused? Why? @ -[None] Did you discuss the management of the patient with other professionals (professionals i.e. , ZABRINA, STYLIST APPRENTICE, lab, RT, psych nurse, social media editor, packer operator automatic, teacher, sea air land officer, case packer and sealer)? Give summary @ -[No] Was smoking cessation discussed for >3mins.? @ -[No] Was critical care preformed (if so, how long)? @ -[No] Were there social determinants of health that impacted care today? How? (Homelessness, low income, unemployed, alcoholism, drug addiction, transportat ion, low edu. Level, literacy, decrease access to med. care, mcc, rehab)? @ -[No] Was there de-escalation of care discussed even if they declined (Discuss DNR or withdrawal of care, Hospice)? DNR status @ -[No] What co-morbidities impacted this encounter? (DM, HTN, Smoking, COPD, CAD, Cancer, CVA, ARF, Chemo, Hep., AIDS, mental health diagnosis, sleep apnea, morbid obesity)? @ -[Hip replacement Was patient admitted / discharged? Hospital course, mention meds given and route, prescriptions, significant lab abnormalities, going to OR and other pertinent info. @ -[Patient is 64-year-old woman with hip dislocation. She will not allow attempted reduction here. The patient admitted to have orthopedic surgeon attempt reduction. Undiagnosed new problem with uncertain prognosis? @ -[No] Drug Therapy requiring intensive monitoring for toxicity (Heparin, Nitro, Insulin, Cardizem)? @ -[No] Were any procedures done? @ -[No] Diagnosis/symptom? @ -[Acute artificial hip dislocation Acute, or Chronic, or Acute on Chronic? @ -[Acute Uncomplicated (without systemic symptoms) or Complicated (systemic symptoms)? @ -[Uncomplicated Side effects of treatment? @ -[No] Exacerbation, Progression, or Severe Exacerbation? @ -[No] Poses a threat to life or bodily function? How? (Chest pain, USA, PR, pneumonia, PE, COPD, DKA, ARF, appy, cholecystitis, CVA, Diverticulitis, Homicidal, Suicidal, threat to staff... and all critical care pts) @ -[No] All treatments are based on ideal body weight as in ED triage - Lab Data Result diagrams: 01/26/25 05:21 01/26/25 05:21 Lab Results 01/24/25 01/24/25 01/24/25 Range/Units 01:12 01:13 01:13 WBC 10.39 H (4.50-10.00) 10*3/uL RBC 3.70 L (4.10-5.20) 10*6/uL Hgb 11.5 L (12.0-15.0) g/dL Hct 33.5 L (37.2-46.3) % MCV 90.5 (80.0-97.0) fL MCH 31.1 (27.0-32.0) pg MCHC 34.3 (32.0-37.0) g/dL Plt Count 206 (140-440) 10*3/uL MPV 9.3 L (9.5-12.2) fL Immature Gran % (Auto) 0.4 % Neutrophils % 77.3 % Lymphocytes % 14.9 % Monocytes % 6.5 % Eosinophils % 0.6 % Basophils % 0.3 % Immature Gran # 0.04 (0.00-0.04) 10*3/uL Neutrophils # 8.03 H (1.80-7.70) 10*3/uL Lymphocytes # 1.55 (0.90-5.00) 10*3/uL Monocytes # 0.68 (0.20-1.00) 10*3/uL Eosinophils # 0.06 (0.04-0.35) 10*3/uL Basophils # 0.03 (0.00-0.10) 10*3/uL PT 10.9 (10.0-12.5) sec INR 1.0 (<1.2) APTT 25.8 (22.0-30.0) sec Sodium 135 L (137-145) mmol/L Potassium 3.5 (3.5-5.1) mmol/L Chloride 104 (98-107) mmol/L Carbon Dioxide 22 (22-30) mmol/L Anion Gap 9 mmol/L BUN 30 H (7-17) mg/dL Creatinine 1.76 H (0.52-1.04) mg/dL Est GFR (CKD-EPI)AfAm 35 (>60 ml/min/1.73 sqM) Est GFR (CKD-EPI)NonAf 30 (>60 ml/min/1.73 sqM) Glucose 151 H (74-99) mg/dL Calcium 9.3 (8.4-10.2) mg/dL Total Bilirubin 0.4 (0.2-1.3) mg/dL AST 28 (14-36) U/L ALT 25 (4-34) U/L Alkaline Phosphatase 58 (38-126) U/L Total Protein 6.3 (6.3-8.2) g/dL Albumin 3.8 (3.5-5.0) g/dL Disposition Clinical Impression: Dislocation of hip prosthesis Disposition: ADMITTED IP TO THIS HOSP Condition: Fair Is patient prescribed a controlled substance at d/c from ED?: No
[2025-01-24 01:26] LABS: Basophils # (A) 0.03 10*3/uL (0.00-0.10); Basophils % (A) 0.3 %; Eosinophils # (A) 0.06 10*3/uL (0.04-0.35); Eosinophils % (A) 0.6 %; HCT 33.5 % (37.2-46.3); HGB 11.5 g/dL (12.0-15.0); Lymphocytes # (A) 1.55 10*3/uL (0.90-5.00); Lymphocytes % (A) 14.9 %; MCH 31.1 pg (27.0-32.0); MCHC 34.3 g/dL (32.0-37.0); MCV 90.5 fL (80.0-97.0); Mean Platelet Volume 9.3 fL (9.5-12.2); Monocytes # (A) 0.68 10*3/uL (0.20-1.00); Monocytes % (A) 6.5 %; Neutrophils # (A) 8.03 10*3/uL (1.80-7.70); Neutrophils % (A) 77.3 %; Platelet Count 206 10*3/uL (140-440); RDW 12.4 % (11.5-14.5); WBC 10.39 10*3/uL (4.50-10.00)
[2025-01-24] MEDS ORDERED: MAG HYDROX/AL HYDROX/SIMETH 30 ML CUP PO PRN (01:36)
[2025-01-24] MEDS ORDERED: NALOXONE 0.4 MG/ML 1 ML VIAL IV PRN (01:36)
[2025-01-24] MEDS ORDERED: ACETAMINOPHEN TAB 325 MG TAB PO PRN (01:36)
[2025-01-24 01:37] LABS: ALT 25 U/L (4-34); AST 28 U/L (14-36); African American GFR (CKD) 35 (>60 ml/min/1.73 sqM); Albumin 3.8 g/dL (3.5-5.0); Alkaline Phosphatase 58 U/L (38-126); Anion Gap 9 mmol/L; Blood Urea Nitrogen 30 mg/dL (7-17); Calcium 9.3 mg/dL (8.4-10.2); Carbon Dioxide 22 mmol/L (22-30); Chloride 104 mmol/L (98-107); Glucose 151 mg/dL (74-99); Non-African American GFR(CKD) 30 (>60 ml/min/1.73 sqM); Potassium 3.5 mmol/L (3.5-5.1); Sodium 135 mmol/L (137-145); Total Bilirubin 0.4 mg/dL (0.2-1.3); Total Protein 6.3 g/dL (6.3-8.2)
--- NOTE | 2025-01-24 01:51 | XR ---
EXAM: XR Pelvis, 1 or 2 Views CLINICAL HISTORY: hip pain TECHNIQUE: Frontal view of the pelvis. Frontal and cross-table lateral views of left hip Limitation: Underpenetration decreases the sensitivity of this exam. COMPARISON: 12/06/12, 01/14/2014 FINDINGS: Bones/joints: Bilateral total hip replacement prostheses. Left femoral prosthesis is superiorly dislocated from the acetabular prosthesis. No acute fracture. Osteopenia Soft tissues: Unremarkable. IMPRESSION: Left femoral prosthesis is superiorly dislocated from acetabular prosthesis.
[2025-01-24 01:57] LABS: Partial Thromboplastin Time 25.8 sec (22.0-30.0); Prothrombin Time 10.9 sec (10.0-12.5)
[2025-01-24] MEDS: SODIUM CHLORIDE 0.9% 1,000 ML IV SCH (02:14)
[2025-01-24] MEDS: ONDANSETRON 4 MG/2 ML VIAL IVP PRN (02:33)
[2025-01-24] MEDS: HYDROmorphone 1 MG/ML 1 ML SYRINGE IVP PRN (05:09)
[2025-01-24] MEDS: PANTOPRAZOLE 40 MG/10 ML VIAL IV SCH (08:51)
--- NOTE | 2025-01-24 11:43 | P.HPOR ---
History of Present Illness H&P Date: 01/24/25 This is a 64-year-old female who is admitted for a dislocated left total hip. Patient is seen and evaluated at bedside in the emergency room today. Patient states that she was getting up from laying down yesterday when the left hip dislocated. Patient states that she had to crawl to her phone to call EMS to take her to the emergency room. X-rays in the emergency room revealed disloca tion of the left total hip arthroplasty. Patient states that she refused closed reduction in the emergency room and prefers this to be done in the OR. Patient states that she had a revision of her left total hip done ~10 years ago with subsequent dislocation and successful closed reduction. Patient states that she has not had any issues with the left hip since then. Patient states that she has had about 10 surgeries for both hips overall. Patient states that she lives alone and normally has no issues with ambulating. Patient's past medical history is significant for fibromyalgia, lupus, history of skin cancer, GERD, hyperlipidemia, hypertension, kidney disease, history of myocardial infarction, history of perforated bowel and osteoarthritis. Patient denies any fever/chills, chest pain, shortness breath, abdominal pain, numbness, weakness or tingling. Review of Systems See HPI. 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 ESTIMATED DATES History of Any Multi-Drug Resistant Organisms: None Reported Past Surgical History: Appendectomy, Bowel Resection, Heart Catheterization, Heart Catheterization With Stent, Joint Replacement, Orthopedic Surgery, Pacemaker Additional Past Surgical History / Comment(s): 2 CORONARY STENTS, bowel surgery for perforations with COLOSTOMY, later REVERSAL OF COLOSTOMY, regla hip replacements-mult, arthroscopy left knee, rt knee replacement, rt carpal tunnel, kidney biopsy, urethral stent Past Anesthesia/Blood Transfusion Reactions: Previous Problems w/ Anesthesia, Motion Sickness Additional Past Anesthesia/Blood Transfusion Reaction / Comment(s): woke up during hip surgeries Date of Last Stent Placement:: 2005 Type of Cardiac Device: Biventricular Pacemaker, Permanent Pacemaker Device Placement Date:: 04/21/18 Past Psychological History: No Psychological Hx Reported Smoking Status: Former smoker Past Drug Use History: Marijuana - Past Family History Mother Family Medical History: Cancer Father Family Medical History: CVA/TIA, Diabetes Mellitus, Deep Vein Thrombosis (DVT) Additional Family Medical History / Comment(s): heart disease. stroke Medications and Allergies Home Medications Medication Instructions Recorded Confirmed Type Aspirin EC [Ecotrin Low Dose] 81 mg PO DAILY 01/17/21 01/24/25 History Gabapentin 300 mg PO BID 01/17/21 01/24/25 History Ascorbic Acid [Vitamin C] 500 mg PO DAILY 04/20/23 01/24/25 History Losartan [Cozaar] 25 mg PO DAILY 04/20/23 01/24/25 History Magnesium Oxide [Magox 400] 400 mg PO DAILY 04/20/23 01/24/25 History Metoprolol Tartrate [Lopressor] 25 mg PO BID 04/20/23 01/24/25 History Rivaroxaban [Xarelto] 20 mg PO HS 04/20/23 01/24/25 History Atorvastatin [Lipitor] 80 mg PO HS 04/27/23 01/24/25 History Multivit with Calcium,Iron,Min 1 tab PO DAILY 01/24/25 01/24/25 History [Women's Multivitamin] Omeprazole 20 mg PO DAILY 01/24/25 01/24/25 History predniSONE 5 mg PO DAILY PRN 01/24/25 01/24/25 History valACYclovir HCL [Valtrex] 500 mg PO BID PRN 01/24/25 01/24/25 History Allergies Allergy/AdvReac Type Severity Reaction Status Date / Time celecoxib [From Celebrex] AdvReac Stomach Verified 01/24/25 07:30 issues Physical Examination On exam patient is resting comfortably in bed in no acute distress. Patient is alert and oriented 3. Left lower extremity: Skin is intact. Minimal soft tissue swelling. Limited motion of the left lower extremity secondary to hip dislocation. Calf is soft and nontender to palpation. Patient intact. Left lower extremity is warm and well-perfused. Full motion of the left foot and ankle. Neurovascular status and circulatory status are intact. Head is normocephalic and atraumatic. Patient moves the head and neck freely. Exams of bilateral upper extremities and the right lower extremity are within normal limits. Results X-rays of the left hip and pelvis dated 01/24/2025 shows dislocation of left total hip arthroplasty. - Labs Labs: Abnormal Lab Results - Last 24 Hours (Table) 01/24/25 01/24/25 Range/Units 01:12 01:13 WBC 10.39 H (4.50-10.00) 10*3/uL RBC 3.70 L (4.10-5.20) 10*6/uL Hgb 11.5 L (12.0-15.0) g/dL Hct 33.5 L (37.2-46.3) % MPV 9.3 L (9.5-12.2) fL Neutrophils # 8.03 H (1.80-7.70) 10*3/uL Sodium 135 L (137-145) mmol/L BUN 30 H (7-17) mg/dL Creatinine 1.76 H (0.52-1.04) mg/dL Glucose 151 H (74-99) mg/dL H & H 01/24/25 Range/Units 01:13 Hgb 11.5 L (12.0-15.0) g/dL Hct 33.5 L (37.2-46.3) % Coagulation 01/24/25 Range/Units 01:13 INR 1.0 (<1.2) Result Diagrams: 01/24/25 01:13 01/24/25 01:12 Assessment and Plan (1) Dislocation of hip, left, closed Current Visit: Yes Status: Acute Code(s): S73.005A - UNSPECIFIED DISLOCATION OF LEFT HIP, INITIAL ENCOUNTER SNOMED Code(s): 044900228 (2) Dislocation of hip prosthesis Current Visit: Yes Status: Acute Code(s): T84.029A - DISLOCATION OF UNSP INTERNAL JOINT PROSTHESIS, INIT ENCNTR SNOMED Code(s): 525483999 (3) History of revision of total replacement of left hip joint Current Visit: Yes Status: Acute Code(s): Z96.642 - PRESENCE OF LEFT ARTIFICIAL HIP JOINT SNOMED Code(s): 968775945192707 Plan: 1. NPO after midnight. 2. Continue bed rest and pain control. 3. Appreciate input from internal medicine. 4. Planning for closed reduction of the left total hip in the OR on 01/25/2025. All questions and concerns addressed at bedside today.
[2025-01-24] MEDS ORDERED: METOCLOPRAMIDE 5 MG/ML 2 ML VIAL IVP PRN (12:56)
[2025-01-24] MEDS: HYDROcodone/APAP 7.5-325MG 1 EACH TAB PO PRN (14:18)
[2025-01-24] MEDS: METOPROLOL TARTRATE 25 MG TAB PO SCH (14:24)
[2025-01-24] MEDS: GABAPENTIN 300 MG CAP PO SCH (14:25)
[2025-01-24] MEDS: LOSARTAN 25 MG TAB PO SCH (17:14)
--- NOTE | 2025-01-24 19:26 | P.CONS ---
History of Present Illness - Reason for Consult Consult date: 01/24/25 Medical Management Requesting physician: Phoenix Oates - History of Present Illness History of Presenting Illness: Patient is a very pleasant 64-year-old female with a past medical history of lupus, fibromyalgia, CAD with previous stenting and permanent pacemaker placement, hypertension, hyperlipidemia, CKD stage IIIa, and previous perforated bowel status post bowel resection. Presented to the hospital with a chief complaint of sudden onset pain in left hip. Patient reports she was lying on the couch and rotated her leg down to the floor with her other leg still up on the arm of the couch and she felt a sudden pop and severe pain to her left hip similar to previous prosthesis dislocations. Upon arrival to our facility, patient underwent evaluation in the emergency department. Vital signs upon arrival show blood pressure 119/82, heart rate 82, respiratory rate 18, temp 98.6 F, and SpO2 of 98% on room air. X-ray left pelvis showing a left femoral prosthesis is superiorly dislocated from acetabular prosthesis. Labs were completed and reviewed. CBC showing leukocytosis with WBC count of 10.39 and normocytic anemia with hemoglobin of 11.5. Coagulation profile normal findings. BMP showing sodium 135, potassium 3.5, and acute kidney injury with BUN of 30, creatinine 1.76, GFR of 30 with baseline creatinine of 1.4. Blood glucose 151. Liver profile unremarkable. Patient admitted under orthopedic surgery team and we were consulted for medical management throughout hospitalization. Review of systems: Pertinent positives and negatives as discussed in HPI, a complete review of systems was performed and all other systems are negative. Physical exam: Vital signs reviewed and stable. General: Nontoxic, no distress and appears stated age. Derm: Skin warm and dry, normal coloration for ethnicity. Head: Atraumatic, normocephalic and symmetric. Eyes: EOM's intact, no lid lag, and anicteric sclera Mouth: no lip lesions, mucus membranes moist Cardiovascular: regular rate and rhythm with normal S1S2, soft systolic murmur, positive posterior tibial pulses bilaterally, and cap refill < 2 seconds. Lungs: Respirations even, regular, and unlabored on room air. Lungs CTA bilaterally, no rhonchi, no rales, no wheezing, and no accessory muscle usage. Abdominal: soft, nontender to palpation, no guarding, no appreciable organomegaly Ext: No gross muscle atrophy, no edema, no contractures. Movement and sensation of distal left foot and toes intact. Patient's left lower extremity elevated on pillow at this time. Neuro: Speech clear, face symmetrical and CN II-XII grossly intact with no noted focal neuro deficits Psych: Alert and oriented to person, place, time, and situation. Appropriate and pleasant affect. Assessment and Plan of Care: Dislocation of left femoral prosthesis - Management per primary admitting orthopedic surgery team including DVT prophylaxis, pain management, advancement of activity, and PT/OT. Continue symptomatic care and pain management with Tylenol 650 mg every 6 hours as needed for mild pain, [place] 7.5/325 mg tablets as needed for moderate pain, and Dilaudid 1 mg IVP every 3 hours as needed for severe pain. Preoperative clearance METS score >4. NSQIP surgical risk calculator was completed showing patient at an increased risk of serious complication at 10.7% with average risk being 7.2%, below average risk of cardiac complication at 0.5% with average risk being 0.6%, and an above average risk of at 1.1% with average risk being 0.9%. Order was placed for patient preoperative EKG Pending EKG results, patient is at an above average risk to undergo any surgical intervention secondary to her significant cardiac history including previous stent placement and permanent pacemaker placement, hypertension, chronic steroid use and CKD. However, as long as patient understands these increased risks, there are no absolute contraindications for patient to undergo this urgent surgical intervention with . We will continue to follow along and monitor closely throughout perioperative period. Acute kidney injury on stage IIIa CKD Urinary retention Patient with acute kidney injury, bladder scan completed at bedside showing greater than 400 cc of urinary retention. Order placed for insertion of Mcgill catheter. We will continue to monitor renal function closely with repeat a.m. labs. Patient started on gentle IV fluid hydration with 0.9% normal saline at 75 cc/h. History of CAD status post stenting and permanent pacemaker placement Paroxysmal atrial fibrillation Hypertension Hyperlipidemia Continue cardiac medication regimen with atorvastatin 80 mg nightly, metoprolol 25 mg twice daily. Aspirin and Xarelto held secondary to pending surgical repair of dislocated hip prosthesis. Losartan held secondary to CONNOR. Lupus Fibromyalgia -Hold prednisone 5 mg daily and patient to continue with Neurontin 300 mg twice daily. Data and imaging reviewed: As stated above in HPI Thank you for allowing us to participate in the care of this pleasant patient. Do not hesitate to contact us with questions. Someone can be reached from the [facility] hospitalist group all hours of the day at [phone] or via [email or web address]. Patient was seen independently by Nurse Practitioner. This document was prepared using [employer] dictation software. Please allow for errors in french translator while rare they do occur. Ernst Singleton NP rendered care for this patient independently, reviewed the findings and plan as documented in the note above and agree with plan. I did not physically speak with or examine the patient on this date. 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 ESTIMATED DATES History of Any Multi-Drug Resistant Organisms: None Reported Past Surgical History: Appendectomy, Bowel Resection, Heart Catheterization, Heart Catheterization With Stent, Joint Replacement, Orthopedic Surgery, Pacemaker Additional Past Surgical History / Comment(s): 2 CORONARY STENTS, bowel surgery for perforations with COLOSTOMY, later REVERSAL OF COLOSTOMY, regla hip replacements-mult, arthroscopy left knee, rt knee replacement, rt carpal tunnel, kidney biopsy, urethral stent Past Anesthesia/Blood Transfusion Reactions: Previous Problems w/ Anesthesia, Motion Sickness Additional Past Anesthesia/Blood Transfusion Reaction / Comm: woke up during hip surgeries Date of Last Stent Placement:: 2005 Type of Cardiac Device: Biventricular Pacemaker, Permanent Pacemaker Device Placement Date:: 04/21/18 Past Psychological History: No Psychological Hx Reported Smoking Status: Former smoker Past Drug Use History: Marijuana - Past Family History Mother Family Medical History: Cancer Father Family Medical History: CVA/TIA, Diabetes Mellitus, Deep Vein Thrombosis (DVT) Additional Family Medical History / Comment(s): heart disease. stroke Medications and Allergies Home Medications Medication Instructions Recorded Confirmed Type Aspirin EC [Ecotrin Low Dose] 81 mg PO DAILY 01/17/21 01/24/25 History Gabapentin 300 mg PO BID 01/17/21 01/24/25 History Ascorbic Acid [Vitamin C] 500 mg PO DAILY 04/20/23 01/24/25 History Losartan [Cozaar] 25 mg PO DAILY 04/20/23 01/24/25 History Magnesium Oxide [Magox 400] 400 mg PO DAILY 04/20/23 01/24/25 History Metoprolol Tartrate [Lopressor] 25 mg PO BID 04/20/23 01/24/25 History Rivaroxaban [Xarelto] 20 mg PO HS 04/20/23 01/24/25 History Atorvastatin [Lipitor] 80 mg PO HS 04/27/23 01/24/25 History Multivit with Calcium,Iron,Min 1 tab PO DAILY 01/24/25 01/24/25 History [Women's Multivitamin] Omeprazole 20 mg PO DAILY 01/24/25 01/24/25 History predniSONE 5 mg PO DAILY PRN 01/24/25 01/24/25 History valACYclovir HCL [Valtrex] 500 mg PO BID PRN 01/24/25 01/24/25 History Allergies Allergy/AdvReac Type Severity Reaction Status Date / Time celecoxib [From Celebrex] AdvReac Stomach Verified 01/24/25 07:30 issues Physical Exam Vitals: Vital Signs Temp Pulse Pulse Resp BP BP Pulse Ox 01/24/25 08:00 75 18 131/89 100 01/24/25 06:00 70 17 143/82 99 01/24/25 04:32 60 18 97 01/24/25 02:18 65 18 154/90 99 01/23/25 23:38 98.6 F 82 18 119/82 98 Intake and Output 01/23/25 01/24/25 01/24/25 22:59 06:59 14:59 Other: Weight 83.007 kg Results CBC & Chem 7: 01/24/25 01:13 01/24/25 01:12 Labs: Abnormal Lab Results - Last 24 Hours (Table) 01/24/25 01/24/25 Range/Units 01:12 01:13 WBC 10.39 H (4.50-10.00) 10*3/uL RBC 3.70 L (4.10-5.20) 10*6/uL Hgb 11.5 L (12.0-15.0) g/dL Hct 33.5 L (37.2-46.3) % MPV 9.3 L (9.5-12.2) fL Neutrophils # 8.03 H (1.80-7.70) 10*3/uL Sodium 135 L (137-145) mmol/L BUN 30 H (7-17) mg/dL Creatinine 1.76 H (0.52-1.04) mg/dL Glucose 151 H (74-99) mg/dL
[2025-01-24] MEDS ORDERED: GABAPENTIN 300 MG CAP PO SCH (21:00)
[2025-01-24] MEDS ORDERED: METOPROLOL TARTRATE 25 MG TAB PO SCH (21:00)
[2025-01-24] MEDS: ATORVASTATIN 80 MG TAB PO SCH (21:23)
[2025-01-25 06:53] LABS: HCT 36.7 % (37.2-46.3); HGB 12.2 g/dL (12.0-15.0); MCH 31.4 pg (27.0-32.0); MCHC 33.2 g/dL (32.0-37.0); MCV 94.3 fL (80.0-97.0); Mean Platelet Volume 9.7 fL (9.5-12.2); Platelet Count 208 10*3/uL (140-440); RBC 3.89 10*6/uL (4.10-5.20); WBC 8.73 10*3/uL (4.50-10.00)
[2025-01-25 07:28] LABS: African American GFR (CKD) 61 (>60 ml/min/1.73 sqM); Anion Gap 7 mmol/L; Blood Urea Nitrogen 15 mg/dL (7-17); Calcium 9.3 mg/dL (8.4-10.2); Carbon Dioxide 25 mmol/L (22-30); Chloride 107 mmol/L (98-107); Glucose 95 mg/dL (74-99); Non-African American GFR(CKD) 53 (>60 ml/min/1.73 sqM); Potassium 4.2 mmol/L (3.5-5.1); Sodium 139 mmol/L (137-145)
[2025-01-25] MEDS: LOSARTAN 25 MG TAB PO SCH (08:42)
[2025-01-25] MEDS ORDERED: NON FORMULARY DRUG (Omeprazole [Omeprazole] 20 MG Tab.Rap.Dr) PO SCH (09:00)
[2025-01-25] MEDS ORDERED: LOSARTAN 25 MG TAB PO SCH (09:00)
--- NOTE | 2025-01-25 14:56 | P.PN ---
Subjective Progress Note Date: 01/25/25 Hospital course: Patient is a very pleasant 64-year-old female with a past medical history of lupus, fibromyalgia, CAD with previous stenting and permanent pacemaker placement, hypertension, hyperlipidemia, CKD stage IIIa, and previous perforated bowel status post bowel resection. Presented to the hospital with a chief complaint of sudden onset pain in left hip. Patient reports she was lying on the couch and rotated her leg down to the floor with her other leg still up on the arm of the couch and she felt a sudden pop and severe pain to her left hip similar to previous prosthesis dislocations. Upon arrival to our facility, patient underwent evaluation in the emergency department. Vital signs upon arrival show blood pressure 119/82, heart rate 82, respiratory rate 18, temp 98.6 F, and SpO2 of 98% on room air. X-ray left pelvis showing a left femoral prosthesis is superiorly dislocated from acetabular prosthesis. Labs were completed and reviewed. CBC showing leukocytosis with WBC count of 10.39 and normocytic anemia with hemoglobin of 11.5. Coagulation profile normal findings. BMP showing sodium 135, potassium 3.5, and acute kidney injury with BUN of 30, creatinine 1.76, GFR of 30 with baseline creatinine of 1.4. Blood glucose 151. Liver profile unremarkable. Patient admitted under orthopedic surgery team and we were consulted for medical management throughout hospitalization. Physical exam: Patient was seen and fully evaluated at bedside. She was visiting with her family and awaiting to be taken down for surgical repair of dislocated left femoral prosthesis later today. Patient did express some frustration over prolonged wait for surgical intervention. She reports continued pain in left hip but is managed with current pain medication regimen. She denies having any additional complaints at this time including headache, lightheadedness, dizziness, chest pain, palpitations, shortness of breath, or experiencing any numbness/tingling in her extremities. Vital signs reviewed and stable. General: Nontoxic, no distress and appears stated age. Derm: Skin warm and dry, normal coloration for ethnicity. Head: Atraumatic, normocephalic and symmetric. Eyes: EOM's intact, no lid lag, and anicteric sclera Mouth: no lip lesions, mucus membranes moist Cardiovascular: regular rate and rhythm with normal S1S2, soft systolic murmur, positive posterior tibial pulses bilaterally, and cap refill < 2 seconds. Lungs: Respirations even, regular, and unlabored on room air. Lungs CTA bilaterally, no rhonchi, no rales, no wheezing, and no accessory muscle usage. Abdominal: soft, nontender to palpation, no guarding, no appreciable organomegaly. Mcgill catheter in place. Ext: No gross muscle atrophy, no edema, no contractures. Movement and sensation of distal left foot and toes intact. Patient's left lower extremity elevated on pillow at this time. Neuro: Speech clear, face symmetrical and CN II-XII grossly intact with no noted focal neuro deficits Psych: Alert and oriented to person, place, time, and situation. Appropriate and pleasant affect. Assessment and Plan of Care: Dislocation of left femoral prosthesis - Management per primary admitting orthopedic surgery team including DVT prophylaxis, pain management, advancement of activity, and PT/OT. Continue symptomatic care and pain management with Tylenol 650 mg every 6 hours as needed for mild pain, [place] 7.5/325 mg tablets as needed for moderate pain, and Dilaudid 1 mg IVP every 3 hours as needed for severe pain. Preoperative clearance METS score >4. NSQIP surgical risk calculator was completed showing patient at an increased risk of serious complication at 10.7% with average risk being 7.2%, below average risk of cardiac complication at 0.5% with average risk being 0.6%, and an above average risk of at 1.1% with average risk being 0.9%. Preoperative EKG showing a ventricular paced rhythm at 72 bpm. Patient is at an above average risk to undergo any surgical intervention secondary to her significant cardiac history including previous stent placement and permanent pacemaker placement, hypertension, chronic steroid use and CKD. However, as long as patient understands these increased risks, there are no absolute contraindications from a medical standpoint for patient to undergo this urgent surgical intervention with . Recommending telemetry monitoring and we will continue to follow along and monitor closely throughout perioperative period. Acute kidney injury resolved Stage IIIa CKD Urinary retention Acute kidney injury was secondary to urinary retention and resolved after placement of Mcgill catheter and gentle IV fluid hydration. Will attempt to remove Mcgill catheter postoperatively and patient to perform voiding trial at that time. We will continue to monitor renal function closely with repeat a.m. labs. Continue gentle IV fluid hydration with 0.9% normal saline at 75 cc/h for an additional 24 hours. History of CAD status post stenting and permanent pacemaker placement Paroxysmal atrial fibrillation Hypertension Hyperlipidemia Continue cardiac medication regimen with atorvastatin 80 mg nightly, metoprolol 25 mg twice daily. Aspirin and Xarelto held secondary to pending surgical repair of dislocated hip prosthesis. Losartan held secondary to CONNOR. Lupus Fibromyalgia -Hold prednisone 5 mg daily and patient to continue with Neurontin 300 mg twice daily. Data and imaging reviewed: Preoperative EKG completed and reviewed showing ventricular paced rhythm at 72 bpm. Morning labs reviewed. CBC showing no significant abnormalities resolution of leukocytosis with WBC count decreasing from 10.39 down to 8.73 and stable hemoglobin of 12.2. BMP showing resolution of CONNOR with BUN of 15, creatinine 1.10, GFR 53. Blood glucose was 95. Magnesium 2.0. Vital signs reviewed. Blood pressure 105/74, heart rate 73, respiratory rate 17, temp 99.0 F, and SpO2 of 98% on room air. Thank you for allowing us to participate in the care of this pleasant patient. Do not hesitate to contact us with questions. Someone can be reached from the [facility] hospitalist group all hours of the day at [phone] or via [employer]. Patient was seen independently by Nurse Practitioner. This document was prepared using [employer] dictation software. Please allow for errors in funeral home associate while rare they do occur. Ernst Singleton NP rendered care for this patient independently, reviewed the findings and plan as documented in the note above and agree with plan. I did not physically speak with or examine the patient on this date. Objective - Vital Signs Vital signs: Vital Signs Temp 99 F 01/25/25 01:09 Pulse 73 01/25/25 01:09 Resp 17 01/25/25 01:09 BP 105/74 01/25/25 01:09 Pulse Ox 98 01/25/25 01:09 FiO2 Intake & Output 01/24/25 01/25/25 01/25/25 18:59 06:59 18:59 Output Total 1000 1400 Balance -1000 -1400 Weight 83.007 kg Output: Urine 1000 1400 - Labs CBC & Chem 7: 01/25/25 05:38 01/25/25 05:38 Labs: Abnormal Lab Results - Last 24 Hours (Table) 01/25/25 01/25/25 Range/Units 05:38 05:38 RBC 3.89 L (4.10-5.20) 10*6/uL Hct 36.7 L (37.2-46.3) % Creatinine 1.10 H (0.52-1.04) mg/dL
[2025-01-25] MEDS: IV FLUID CONTINUATION 1,000 ML IV ONE ×2 (15:21→16:28)
[2025-01-25] MEDS ORDERED: HYDROmorphone 0.5 MG/0.5 ML SYRINGE IVP PRN ×3 (15:30)
[2025-01-25] MEDS ORDERED: NALOXONE 0.4 MG/ML 1 ML VIAL IV PRN (15:30)
[2025-01-25] MEDS ORDERED: MAGNESIUM HYDROXIDE 2,400 MG/30 ML CUP PO PRN (15:30)
[2025-01-25] MEDS: SODIUM CHLORIDE 0.9% 1,000 ML IV SCH (15:45)
[2025-01-25] MEDS ORDERED: fentaNYL (PF) 50 MCG/ML 2 ML AMP ONE (15:58)
[2025-01-25] MEDS ORDERED: PROPOFOL 10 MG/ML 20 ML VIAL IV ONE (15:58)
[2025-01-25] MEDS ORDERED: LIDOCAINE 1% INJ 10MG/ML (20 ML MDV) ONE (15:58)
[2025-01-25] MEDS ORDERED: MIDAZOLAM 2 MG/2 ML VIAL ONE (15:58)
[2025-01-25] MEDS ORDERED: PHENYLEPHRINE-0.9% NACL SYG 1,000 MCG/10 ML SYRINGE ONE (15:58)
[2025-01-25] MEDS: fentaNYL (PF) 50 MCG/ML 2 ML AMP IVP PRN (16:03)
[2025-01-25] MEDS: DEXAMETHASONE SOD PHOSPHATE 4 MG/ML 1 ML VIAL IVP STA (16:03)
--- NOTE | 2025-01-25 16:22 | P.OP ---
Date of Procedure: 01/25/25 Preoperative Diagnosis: Dislocated left total hip arthroplasty Postoperative Diagnosis: Dislocated left total hip arthroplasty Procedure(s) Performed: Closed reduction left total hip arthroplasty Anesthesia: [employer] Advisor #1: Phoenix Oates Estimated Blood Loss (ml): 0 Pathology: none sent Condition: stable Disposition: PACU Indications for Procedure: This is a 64-year-old female that had a left total hip arthroplasty approximately 11 years ago. She dislocated shortly after her procedure and a closed reduction was performed. But she has been pain-free and symptom-free for the past 11 years. She said she was getting up from the couch yesterday and felt a pop in her left hip. She presented the emergency room with a dislocated left total hip arthroplasty. Patient was admitted for close reduction under general anesthetic. The surgical nonsurgical treatment options were discussed at length with her and her son, I have recommended a closed reduction under anesthesia of her left total hip arthroplasty. We will plan a close follow-up with motion restrictions in order to lessen the chance of a repeat dislocation. Informed consent was obtained. Operative Findings: The operative findings show a closed anterior superior dislocation of left total hip arthroplasty. Description of Procedure: The patient was seen and evaluated in the preoperative area and the consent was reviewed. The operative site was marked with a skin marker. The patient verified the procedure and operative site. The patient was then brought to the operating room. A general anesthetic was administered by the anesthesia department. The patient was then placed on the [place] table with the bony prominences well-padded. With fluoroscopic guidance, a closed reduction of the left hip was performed. Concentric reduction was confirmed with fluoroscopy. The hip was taken through range of motion after the close reduction found to be stable. Patient was placed in a knee immobilizer in order to prevent excessive range of motion postoperatively. Patient was then transferred to cover room stable condition.
--- NOTE | 2025-01-25 16:45 | FL ---
EXAMINATION TYPE: FL guidance operating room, XR Hip Limited LT DATE OF EXAM: 01/25/2025 CLINICAL INDICATION: Female, 64 years old with history of CLOSED REDUCTION HIP, left hip dislocation. TECHNIQUE: Fluoroscopy. Intraoperative limited views left hip. COMPARISON: Pelvic and left hip x-ray one day earlier. FINDINGS: Fluoroscopic guidance was provided during closed reduction procedure performed by Dr. Samuel richard. A total of 10 seconds of fluoroscopic time was utilized during the procedure. TOTAL DAP = 1.0 528 Gycm2. Images acquired show successful reduction of prosthetic dislocation. IMPRESSION: As Above. [facility], , 01/25/2025 4:42 PM
[2025-01-25] MEDS: SENNOSIDES-DOCUSATE SODIUM 1 EACH TAB PO SCH (20:15)
[2025-01-25 21:06] VITALS: PULSE 69
[2025-01-25] MEDS: HYDROcodone/APAP 7.5-325MG 1 EACH TAB PO PRN (22:24)
[2025-01-26 03:11] VITALS: BP 123/77; TEMP 98.3
[2025-01-26 08:17] LABS: Basophils # (A) 0.02 X 10*3/uL (0.00-0.10); Basophils % (A) 0.2 %; Eosinophils # (A) 0 X 10*3/uL (0.04-0.35); Eosinophils % (A) 0 %; HCT 33.7 % (37.2-46.3); HGB 11.1 g/dL (12.0-15.0); Lymphocytes # (A) 1.67 X 10*3/uL (0.90-5.00); Lymphocytes % (A) 15.9 %; MCH 30.7 pg (27.0-32.0); MCHC 32.9 g/dL (32.0-37.0); MCV 93.4 FL (80.0-97.0); Mean Platelet Volume 9.6 FL (9.5-12.2); Monocytes # (A) 0.97 X 10*3/uL (0.20-1.00); Monocytes % (A) 9.2 %; NRBC Per 100 WBC 0 X 10*3/uL (0.00-0.01); Neutrophils # (A) 7.83 X 10*3/uL (1.80-7.70); Neutrophils % (A) 74.3 %; Platelet Count 188 X 10*3/uL (140-440); RBC 3.61 X 10*6/uL (4.10-5.20); RDW 12.7 % (11.5-14.5); WBC 10.53 X 10*3/uL (4.50-10.00)
[2025-01-26] MEDS: PANTOPRAZOLE 40 MG TABLET PO SCH (08:28)
[2025-01-26 08:52] LABS: Blood Urea Nitrogen 13.7 mg/dL (9.0-27.0); Calcium 8.9 mg/dL (8.7-10.3); Carbon Dioxide 23.1 mmol/L (21.6-31.8); Chloride 110 mmol/L (96-109); Glucose 101 mg/dL (70-110); Magnesium 2.2 mg/dL (1.5-2.4); Potassium 4.7 mmol/L (3.5-5.5); Sodium 142 mmol/L (135-145)
--- NOTE | 2025-01-26 09:35 | P.DS ---
Providers Date of admission: 01/24/25 09:20 Attending physician: Phoenix Oates Consults: 01/25/25 17:44 Consult Physician Routine Consulting Provider: Kaveh Alicea Consult Reason/Comments: medical management Do you want consulting provider notified?: Already Contacted Primary care physician: Esteban Madison MD [facility] Course: HPI: This is a 64-year-old female who is admitted for a dislocated left total hip. Patient is seen and evaluated at bedside in the emergency room today. Patient states that she was getting up from laying down yesterday when the left hip dislocated. Patient states that she had to crawl to her phone to call EMS to take her to the emergency room. X-rays in the emergency room revealed dislocation of the left total hip arthroplasty. Patient states that she refused closed reduction in the emergency room and prefers this to be done in the OR. Patient states that she had a revision of her left total hip done ~10 years ago with subsequent dislocation and successful closed reduction. Patient states that she has not had any issues with the left hip since then. Patient states that she has had about 10 surgeries for both hips overall. Patient states that she lives alone and normally has no issues with ambulating. Patient's past medical history is significant for fibromyalgia, lupus, history of skin cancer, GERD, hyperlipidemia, hypertension, kidney disease, history of myocardial infarction, history of perforated bowel and osteoarthritis. Patient denies any fever/chills, chest pain, shortness breath, abdominal pain, numbness, weakness or tingling. On 01/25/2025 patient underwent a sedated Closed reduction left total hip arthroplasty in the OR by Dr. Oates. Patient tolerated procedure well. Patient was transferred orthopedic floor. Patient no acute events overnight. Patient got up and walked to chair this morning. Patient has been urinating without difficulty. Patient is resting comfortably in chair. No apparent distress. They are awake, alert and able to answer questions. Inspection: There is a knee immobilizer placed on the left lower extremity. Palpation: The left calf is soft to compression. No calf tenderness. Neurovascular: Left femoral nerve function is intact. The patient is able to actively plantarflex and dorsiflex their operative ankle and toes. Operative extremity sensation is intact to light touch throughout. Their operative foot appears well perfused, palpable dorsalis pedis pulse, and capillary refill under 2 seconds. Patient will work with physical therapy. If patient passes physical therapy they can discharge home. Patient's pain medicine was ordered yesterday. Patient's pain has been controlled with oral pain medication. Patient can Weight-bear as tolerated on the left lower extremity in a knee immobilizer at all times except for hygiene. Assessment: status post closed reduction of left total hip arthroplasty on 01/25/2025 Patient Condition at Discharge: Fair Plan - Discharge Summary Discharge Rx Participant: No New Discharge Prescriptions: New HYDROcodone/APAP 7.5-325MG [Sontag 7.5-325] 1 - 2 tab PO Q6H PRN #32 tab PRN Reason: Pain Sennosides [Senokot] 2 tab PO DAILY PRN #60 tablet PRN Reason: Constipation No Action Aspirin EC [Ecotrin Low Dose] 81 mg PO DAILY Ascorbic Acid [Vitamin C] 500 mg PO DAILY Magnesium Oxide [Magox 400] 400 mg PO DAILY Atorvastatin [Lipitor] 80 mg PO HS Omeprazole 20 mg PO DAILY Gabapentin 300 mg PO BID Losartan [Cozaar] 25 mg PO DAILY Rivaroxaban [Xarelto] 20 mg PO HS Metoprolol Tartrate [Lopressor] 25 mg PO BID valACYclovir HCL [Valtrex] 500 mg PO BID PRN PRN Reason: first sign of outbreak predniSONE 5 mg PO DAILY PRN PRN Reason: Pain Multivit with Calcium,Iron,Min [Women's Multivitamin] 1 tab PO DAILY Discharge Medication List Aspirin EC [Ecotrin Low Dose] 81 mg PO DAILY 01/17/21 [History] Gabapentin 300 mg PO BID 01/17/21 [History] Ascorbic Acid [Vitamin C] 500 mg PO DAILY 04/20/23 [History] Losartan [Cozaar] 25 mg PO DAILY 04/20/23 [History] Magnesium Oxide [Magox 400] 400 mg PO DAILY 04/20/23 [History] Metoprolol Tartrate [Lopressor] 25 mg PO BID 04/20/23 [History] Rivaroxaban [Xarelto] 20 mg PO HS 04/20/23 [History] Atorvastatin [Lipitor] 80 mg PO HS 04/27/23 [History] Multivit with Calcium,Iron,Min [Women's Multivitamin] 1 tab PO DAILY 01/24/25 [History] Omeprazole 20 mg PO DAILY 01/24/25 [History] predniSONE 5 mg PO DAILY PRN 01/24/25 [History] valACYclovir HCL [Valtrex] 500 mg PO BID PRN 01/24/25 [History] HYDROcodone/APAP 7.5-325MG [Sontag 7.5-325] 1 - 2 tab PO Q6H PRN #32 tab 01/25/25 [Rx] Sennosides [Senokot] 2 tab PO DAILY PRN #60 tablet 01/25/25 [Rx] Follow up Appointment(s)/Referral(s): Esteban Madison MD [Primary Care Provider] - 1-2 days Phoenix Oates DO [Doctor of Osteopathic Medicine] - 2 Weeks Activity/Diet/Wound Care/Special Instructions: Maintain knee immobilizer. May remove for hygiene. Weightbearing as tolerated with walker and knee immobilizer. Please take medications as prescribed. Please follow up with [facility] and call with any questions or concerns, . Discharge Disposition: HOME SELF-CARE
[2025-01-26] MEDS: RIVAROXABAN 20 MG TAB PO SCH (10:17)
[2025-01-26 11:01] VITALS: RESP 18
--- NOTE | 2025-01-26 14:58 | P.PN ---
Subjective Progress Note Date: 01/26/25 Hospital course: Patient is a very pleasant 64-year-old female with a past medical history of lupus, fibromyalgia, CAD with previous stenting and permanent pacemaker placement, hypertension, hyperlipidemia, CKD stage IIIa, and previous perforated bowel status post bowel resection. Presented to the hospital with a chief complaint of sudden onset pain in left hip. Patient reports she was lying on the couch and rotated her leg down to the floor with her other leg still up on the arm of the couch and she felt a sudden pop and severe pain to her left hip similar to previous prosthesis dislocations. Upon arrival to our facility, patient underwent evaluation in the emergency department. Vital signs upon arrival show blood pressure 119/82, heart rate 82, respiratory rate 18, temp 98.6 F, and SpO2 of 98% on room air. X-ray left pelvis showing a left femoral prosthesis is superiorly dislocated from acetabular prosthesis. Labs were completed and reviewed. CBC showing leukocytosis with WBC count of 10.39 and normocytic anemia with hemoglobin of 11.5. Coagulation profile normal findings. BMP showing sodium 135, potassium 3.5, and acute kidney injury with BUN of 30, creatinine 1.76, GFR of 30 with baseline creatinine of 1.4. Blood glucose 151. Liver profile unremarkable. Patient admitted under orthopedic surgery team and we were consulted for medical management throughout hospitalization. Physical exam: Patient was seen and fully evaluated at bedside. She is postoperative day 1 and visiting with her daughter and granddaughter at bedside. Patient reports feeling much better today and reports only very very minimal postoperative pain. She reports she has been ambulating [id number] to the restroom with use of walker without any difficulties. She denies having any complaints at this time including headache, lightheadedness, dizziness, chest pain, palpitations, shortness of breath, cough or congestion, nausea or vomiting, abdominal pain, or experiencing any numbness/tingling in her extremities Vital signs reviewed and stable. General: Nontoxic, no distress and appears stated age. Derm: Skin warm and dry, normal coloration for ethnicity. Head: Atraumatic, normocephalic and symmetric. Eyes: EOM's intact, no lid lag, and anicteric sclera Mouth: no lip lesions, mucus membranes moist Cardiovascular: regular rate and rhythm with normal S1S2, soft systolic murmur, positive posterior tibial pulses bilaterally, and cap refill < 2 seconds. Lungs: Respirations even, regular, and unlabored on room air. Lungs CTA bilaterally, no rhonchi, no rales, no wheezing, and no accessory muscle usage. Abdominal: soft, nontender to palpation, no guarding, no appreciable organomegaly. Mcgill catheter in place. Ext: No gross muscle atrophy, no edema, no contractures. Knee immobilizer in place Neuro: Speech clear, face symmetrical and CN II-XII grossly intact with no noted focal neuro deficits Psych: Alert and oriented to person, place, time, and situation. Appropriate and pleasant affect. Assessment and Plan of Care: Dislocation of left femoral prosthesis now Status post closed reduction of left total hip arthroplasty - Management per primary admitting orthopedic surgery team including DVT prophylaxis, pain management, advancement of activity, and PT/OT. Continue symptomatic care and pain management with Tylenol 650 mg every 6 hours as needed for mild pain, R[place]ford 7.5/325 mg tablets as needed for moderate pain, and Dilaudid 1 mg IVP every 3 hours as needed for severe pain. Currently on DVT prophylaxis with Xarelto. Acute kidney injury resolved Stage IIIa CKD Urinary retention resolved Acute kidney injury was secondary to urinary retention and resolved after placement of Mcgill catheter and gentle IV fluid hydration. Mcgill catheter removed this morning. Patient reports urinating without any difficulties. AKA resolved with morning labs showing BUN of 13.7, creatinine 1.0, GFR of 63. History of CAD status post stenting and permanent pacemaker placement Paroxysmal atrial fibrillation Hypertension Hyperlipidemia Continue cardiac medication regimen with atorvastatin 80 mg nightly, metoprolol 25 mg twice daily. Aspirin and Xarelto held secondary to pending surgical repair of dislocated hip prosthesis. Losartan held secondary to CONNOR. Lupus Fibromyalgia -Hold prednisone 5 mg daily and patient to continue with Neurontin 300 mg twice daily. Data and imaging reviewed: Postoperative labs reviewed. CBC showing mild leukocytosis with WBC count of 10.53 and stable normocytic anemia with hemoglobin of 11.1. BMP showing hyperchloremia with chloride of 110. Blood glucose 101. Magnesium 2.2 Vital signs reviewed. Blood pressure 123/77, heart rate 69, respiratory rate 15, temp 98.3 F, and SpO2 of 97% on room air Thank you for allowing us to participate in the care of this pleasant patient. Do not hesitate to contact us with questions. Someone can be reached from the [facility] hospitalist group all hours of the day at [phone] or via perfect serve. Patient was seen independently by Nurse Practitioner. This document was prepared using [email or web address] dictation software. Please allow for errors in feeder tender while rare they do occur. Ernst Singleton INDUSTRIAL ANALYST rendered care for this patient independently, reviewed the findings and plan as documented in the note above and agree with plan. I did not physically speak with or examine the patient on this date. Objective - Vital Signs Vital signs: Vital Signs Temp 98.3 F 01/26/25 01:35 Pulse 69 01/26/25 01:35 Resp 15 01/26/25 01:35 BP 123/77 01/26/25 01:35 Pulse Ox 97 01/26/25 01:35 FiO2 Intake & Output 01/25/25 01/26/25 01/26/25 18:59 06:59 18:59 Intake Total 700 Output Total 1500 2900 Balance -800 -2900 Intake: IV 700 Output: Urine 1500 2900 Uretheral (Mcgill) 1450 Other: Voiding Method Indwelling Catheter - Labs CBC & Chem 7: 01/26/25 05:21 01/26/25 05:21 Labs: Abnormal Lab Results - Last 24 Hours (Table) 01/26/25 Range/Units 05:21 WBC 10.53 H (4.50-10.00) X 10*3/uL RBC 3.61 L (4.10-5.20) X 10*6/uL Hgb 11.1 L (12.0-15.0) g/dL Hct 33.7 L (37.2-46.3) % Neutrophils # 7.83 H (1.80-7.70) X 10*3/uL Eosinophils # 0 L (0.04-0.35) X 10*3/uL
== END 2025-01-26 13:00 | disposition home or self-care (01) | DRG 560 ==
LOC: EC 23:33 → 4SSUR 01-24 01:38 → OBSVTOIN 01-24 09:20 → 1SOBS 01-24 10:45 → 4SSUR 01-25 18:30
PROVIDERS: ADMIT Orthopaedic Surgery; ATTEND Orthopaedic Surgery
PROC: 0SWBXJZ Revision of Synthetic Substitute in Left Hip Joint, External Approach (ICD-10-PCS; principal; 2025-01-25 13:05)
DX: T84.021A Dislocation of internal left hip prosthesis, initial encounter (principal); N17.9 Acute kidney failure, unspecified; D63.1 Anemia in chronic kidney disease; M32.9 Systemic lupus erythematosus, unspecified; N18.31 Chronic kidney disease, stage 3a; I12.9 Hypertensive chronic kidney disease with stage 1 through stage 4 chronic kidney disease, or unspecified chronic kidney disease; I48.0 Paroxysmal atrial fibrillation; Z96.641 Presence of right artificial hip joint; E78.5 Hyperlipidemia, unspecified; M79.7 Fibromyalgia; R33.9 Retention of urine, unspecified; I25.10 Atherosclerotic heart disease of native coronary artery without angina pectoris; Y79.2 Prosthetic and other implants, materials and accessory orthopedic devices associated with adverse incidents; I25.2 Old myocardial infarction; D72.829 Elevated white blood cell count, unspecified; E87.8 Other disorders of electrolyte and fluid balance, not elsewhere classified; Z85.828 Personal history of other malignant neoplasm of skin; Z79.82 Long term (current) use of aspirin; Z79.899 Other long term (current) drug therapy; Z88.8 Allergy status to other drugs, medicaments and biological substances; Z87.891 Personal history of nicotine dependence; Z95.5 Presence of coronary angioplasty implant and graft; Z95.0 Presence of cardiac pacemaker; Z96.651 Presence of right artificial knee joint; Z79.01 Long term (current) use of anticoagulants; Z90.49 Acquired absence of other specified parts of digestive tract
CPT/HCPCS: 36415; 73501; 73502; 80048; 80053; 83735; 85025; 85027; 85610; 85730; 96372; 96374; 96375; 96376; 99285